=== PATIENT | male | born 1975 | race Caucasian/White ===

== ENCOUNTER 2017-07-15 17:14 | Emergency (ER) | payer OTHER ==
[~2017-07-15] VITALS: Ht 180.3 cm; Wt 74.7 kg
[2017-07-15 17:20] VITALS: TEMP 36.7; Ht 180.3 cm; Wt 74.7 kg
[2017-07-15] MEDS ORDERED: SODIUM CHLORIDE 0.9% 1000ML 1,000 ML IV STA (17:45)
[2017-07-15] MEDS ORDERED: MoRPHine SULFATE 10 MG/ML CARP/VIAL IV STA ×2 (17:45→19:25)
[2017-07-15] MEDS ORDERED: ONDANSETRON INJ 2 MG/ML 2 ML VIAL IV STA (17:45)
[2017-07-15] MEDS ORDERED: OPTIRAY 320 IV PRN (18:00)
[2017-07-15 18:02] LABS: BASO % 0.2 %; BASO ABS # 0.03 K/uL (0-0.2); COMPLETE YES; EOS % 2.3 %; HEMATOCRIT 45.2 % (42-52); IG% 0.3 %; LYMPH % 15.8 %; LYMPH ABS # 2.37 K/uL (1.2-3.4); MEAN CELL VOLUME 86.9 fL (80-100); MEAN CORPUSCULAR HEMOGLOBIN 32.1 pg (25-34); MEAN CORPUSCULAR HGB CONC 36.9 g/dl (32-36); MEAN PLATELET VOLUME 9.2 fL (7.4-10.4); MONO % 6.4 %; PLATELET COUNT 300 K/uL (130-400); WHITE BLOOD COUNT 15.04 K/uL (4.8-10.8)
[2017-07-15 18:05] LABS: URINE APPEARANCE CLEAR (CLEAR); URINE BILIRUBIN NEG (NEG); URINE COLOR DK YELLOW; URINE NITRITE NEG (NEG); URINE SPECIFIC GRAVITY 1.019 (1.000-1.030); UROBILINOGEN NEG (NEG)
[2017-07-15 18:07] LABS: MANUAL MICROSCOPIC REQUIRED? NO; REVIEW REQ? NO
[2017-07-15] MEDS ORDERED: IBUP-1050 PO (18:12)
[2017-07-15 18:26] LABS: ALT/SGPT 34 U/L (12-78); AST/SGOT 15 U/L (15-37); BLOOD UREA NITROGEN 10 mg/dl (7-18); BUN/CREATININE RATIO 10.7 (10-20); CALCIUM 9.1 mg/dl (8.5-10.1); CARBON DIOXIDE 28 mmol/L (21-32); CHLORIDE 105 mmol/L (98-107); CREATININE 0.94 mg/dl (0.60-1.40); GLUCOSE 90 mg/dl (70-99); POTASSIUM 3.7 mmol/L (3.5-5.1); SODIUM 139 mmol/L (136-145)
[2017-07-15 18:29] LABS: ALKALINE PHOSPHATASE 100 U/L (45-117)
--- NOTE | 2017-07-15 18:34 | DIAGNOSTIC IMAGING REPORT ---
ULTRASOUND OF THE APPENDIX CLINICAL HISTORY: Right lower quadrant abdominal pain. COMPARISON STUDY: No priors. FINDINGS: Real-time, grayscale, and color flow sonography of the right lower quadrant was performed to assess for acute appendicitis. The appendix was not discretely visualized. No inflammatory changes or free fluid are seen in the right lower quadrant. No lymphadenopathy was seen. IMPRESSION: Nonvisualization of the appendix. Note that this does not exclude acute appendicitis. Electronically signed by: Dakota Simons M.D. 07/15/2017 6:33 PM Dictated Date/Time: 07/15/2017 6:32 PM
--- NOTE | 2017-07-15 20:25 | DIAGNOSTIC IMAGING REPORT ---
CT OF THE ABDOMEN AND PELVIS WITH CONTRAST CLINICAL HISTORY: Right lower quadrant abdominal pain. COMPARISON STUDY: Abdominal ultrasound performed earlier today. TECHNIQUE: Following IV administration of 116 mL of Optiray-320, axial images of the abdomen and pelvis were obtained from the lung bases to the proximal femurs. Images were reviewed in the axial, sagittal, and coronal planes. IV contrast was administered without complication. A dose lowering technique was utilized adhering to the principles of ALARA. Oral contrast was administered. CT DOSE: 334.41 mGy.cm FINDINGS: The liver, spleen, adrenal glands, kidneys and pancreas are normal. There is no biliary or pancreatic ductal dilatation. The caliber and wall thickness of small and large bowel are normal. The appendix is normal. There is no free fluid. There is no lymphadenopathy or ascites. There is mild dextroscoliosis of the lumbar spine. There are no suspicious osseous lesions. IMPRESSION: No acute process within the abdomen or pelvis. Normal appendix. Electronically signed by: Demetrio Levi M.D. 07/15/2017 8:24 PM Dictated Date/Time: 07/15/2017 8:17 PM
[2017-07-15] MEDS ORDERED: HYDR-5688 PO (20:54)
[2017-07-15] MEDS ORDERED: NORCO 5/325MG HOME PACK PO ONE (21:00)
[2017-07-15 21:09] VITALS: BP 133/82; PULSE 61; O2SAT 98
--- NOTE | 2017-07-16 01:07 | EMERGENCY ROOM VISIT NOTE ---
ED Visit Note First contact with patient: 17:20 Chief Complaint: I'm having pain in my lower abdomen on the right. History of Present Illness: Mr. Jansen is a 41 year-old white male who ambulates into the ED accompanied by female friend complaining of right lower quadrant abdominal pain. Historically patient reports patient has had similar pain 3-4 times over the last year. He was seen at other hospitals for his symptoms and no cause was identified. He does report he has no significant gastrointestinal disorders and is never had any abdominal surgeries. Patient reports a gradual onset of right lower quadrant abdominal pain that started approximately 2 days ago. Since that time the pain has been constant and gradually increasing in intensity. The pain is currently described as sharp. He rates his discomfort 5/10. The pain is radiating into the proximal aspect of the anterior right thigh.. The pain worsens with palpation of his abdomen and extension of his hip. He has not identified any alleviating factors related to the pain. He reports he has been taken ibuprofen without relief of his discomfort. Associated with the pain there has been experiencing chills but no dianna fevers, he has been nauseated but has not vomited and has noted a decreased appetite.. Patient denies fevers, chills, sweats, skin eruptions, skin color changes, upper respiratory tract symptoms, shortness of breath, chest pain, nausea, vomiting, diarrhea, constipation, rectal bleeding, black/tarry stools, urinary symptoms, hematuria, vaginal bleeding, vaginal discharge, back/flank pain. Review of Systems: As noted above in history of present illness. All body systems were reviewed and found to be negative as noted above. Past Medical History: As noted above, hypertension, asthma and spina bifida. Current Medications: Lisinopril, Paxil. Allergies to Medications: Tramadol. Social History: Patient is currently employed; he feels safe in his home environment; he admits to tobacco use and denies alcohol use. Physical Examination: Vital Signs: Date Time Temp Pulse Resp B/P (MAP) Pulse Ox O2 Delivery O2 Flow Rate FiO2 07/15/17 21:09 61 18 133/82 98 07/15/17 19:06 61 18 133/82 98 Room Air 07/15/17 18:07 76 07/15/17 17:20 36.7 87 18 124/74 96 Room Air GENERAL: 41-year-old female in mild to moderate distress due to pain, nontoxic- appearing, afebrile and hemodynamically stable. NEUROLOGICAL: Awake, alert and oriented to person, place and time. Answering questions appropriately and following commands. Normal gait. Good hand eye coordination. SKIN: Warm, dry and pink. No soft tissue eruptions or trauma noted. HEENT: Atraumatic and normocephalic. PERRLA. Sclera white and conjunctiva pink. Oral cavity moist and pink. Pharynx is nonerythematous or edematous. Speech normal. No lymphadenopathy. Trachea midline. No jugular venous distention. BACK: No tenderness over the bony spine. No CVA tenderness. THORAX: Lungs sounds are clear to auscultation and equal bilaterally with symmetrical chest wall. No wheezing, rales or rhonchi. No crepitus, tenderness , subcutaneous air or deformities noted. HEART: Regular rate and rhythm. No gallops, rubs or murmurs are appreciated. ABDOMEN: Flat and soft with moderate tenderness just superior to McBurney's point with guarding. Negative psoas sign and heel tap test. Decreased bowel sounds in all quadrants. No guarding, rigidity or organomegaly. EXTREMITIES: Moves all extremities well on command and with purpose. All distal neurovascular statuses are intact and equal bilaterally. ED Course: Patient is assessed as noted above. Laboratory Testing: Test 07/15/17 17:47 Range/Units White Blood Count 15.04 4.8-10.8 K/uL Red Blood Count 5.20 4.7-6.1 M/uL Hemoglobin 16.7 14.0-18.0 g/dL Hematocrit 45.2 42-52 % Mean Corpuscular Volume 86.9 80-100 fL Mean Corpuscular Hemoglobin 32.1 25-34 pg Mean Corpuscular Hemoglobin Concent 36.9 32-36 g/dl Platelet Count 300 130-400 K/uL Mean Platelet Volume 9.2 7.4-10.4 fL Neutrophils (%) (Auto) 75.0 % Lymphocytes (%) (Auto) 15.8 % Monocytes (%) (Auto) 6.4 % Eosinophils (%) (Auto) 2.3 % Basophils (%) (Auto) 0.2 % Neutrophils # (Auto) 11.27 1.4-6.5 K/uL Lymphocytes # (Auto) 2.37 1.2-3.4 K/uL Monocytes # (Auto) 0.97 0.11-0.59 K/uL Eosinophils # (Auto) 0.35 0-0.5 K/uL Basophils # (Auto) 0.03 0-0.2 K/uL RDW Standard Deviation 40.3 36.4-46.3 fL RDW Coefficient of Variation 12.6 11.5-14.5 % Immature Granulocyte % (Auto) 0.3 % Immature Granulocyte # (Auto) 0.05 0.00-0.02 K/uL Urine Color DK YELLOW Urine Appearance CLEAR CLEAR Urine pH 6.0 4.5-7.5 Urine Specific [place] 1.019 1.000-1.030 Urine Protein NEG NEG Urine Glucose (UA) NEG NEG Urine Ketones TRACE NEG Urine Occult Blood NEG NEG Urine Nitrite NEG NEG Urine Bilirubin NEG NEG Urine Urobilinogen NEG NEG Urine Leukocyte Esterase NEG NEG Sodium Level 139 136-145 mmol/L Potassium Level 3.7 3.5-5.1 mmol/L Chloride Level 105 98-107 mmol/L Carbon Dioxide Level 28 21-32 mmol/L Anion Gap 6.0 3-11 mmol/L Blood Urea Nitrogen 10 7-18 mg/dl Creatinine 0.94 0.60-1.40 mg/dl Est Creatinine Clear Calc Drug Dose 109.3 ml/min Estimated GFR () 116.3 Estimated GFR (Non- 100.3 BUN/Creatinine Ratio 10.7 10-20 Random Glucose 90 70-99 mg/dl Calcium Level 9.1 8.5-10.1 mg/dl Total Bilirubin 0.5 0.2-1 mg/dl Direct Bilirubin < 0.1 0-0.2 mg/dl Aspartate Amino Transf (AST/SGOT) 15 15-37 U/L Alanine Aminotransferase (ALT/SGPT) 34 12-78 U/L Alkaline Phosphatase 100 45-117 U/L Total Protein 7.3 6.4-8.2 gm/dl Albumin 3.7 3.4-5.0 gm/dl Lipase 52 73-393 U/L Appendix Ultrasound: Was reviewed by myself and read by the radiologist and shows a nonvisualized appendix. Contrast Abdominal/Pelvic CT: Was reviewed by myself and read by the radiologist and shows a normal-appearing appendix and no acute process within the abdomen or pelvis. Patient was hydrated with normal saline and he received a total of 12 mg of morphine IV for pain, 4 mg of Zofran IV for nausea. Patient was reassessed multiple times during his stay in the emergency department. Patient's case was reviewed with Dr. Lyles; we agreed on diagnostic approach, treatment, disposition and plan. Patient was educated about today's findings and instructed on his treatment plan ; he verbalizes understanding and agreement with this plan. Clinical Impression: Right lower quadrant abdominal pain. Decision-Making: Initially my differential diagnosis I considered appendicitis, ureter calculus, constipation, bowel obstruction, colitis, and other causes. Disposition: Patient discharged home in stable condition accompanied by his ; prior to departure he was reassessed and subjectively reported he was feeling better and rated his discomfort 2/10. Plan: Patient was placed on a sliding pain medication scale including ibuprofen, acetaminophen and Snow; appropriate narcotic precautions were discussed with the patient and his name was checked in the state database and no red flags were noted. Patient was encouraged to follow-up with Dr. Tony, marking devices assembler, for specialty care and treatment. Patient was encouraged to stay well-hydrated. Patient was also encouraged to contact his PCP and provide information about this ED visit. Patient was encouraged return ED for worsening/uncontrolled pain, fevers, vomiting, bloody stools or any new/concerning symptoms.
== END 2017-07-15 21:24 | disposition home or self-care (01) ==
LOC: C.EDB 17:15 → C.EDC 21:24
DX: R10.31 Right lower quadrant pain (principal); I10 Essential (primary) hypertension; J45.909 Unspecified asthma, uncomplicated; Q05.7 Lumbar spina bifida without hydrocephalus; F17.200 Nicotine dependence, unspecified, uncomplicated; Z79.899 Other long term (current) drug therapy; Z88.8 Allergy status to other drugs, medicaments and biological substances

== ENCOUNTER 2017-07-30 15:40 | Emergency (ER) | payer OTHER ==
[~2017-07-30] VITALS: Ht 180.3 cm; Wt 71.8 kg
[~2017-07-30 15:40] MED LIST: HYDR-5688 PO; IBUP-1050 PO
[2017-07-30 15:42] VITALS: TEMP 37; Ht 180.3 cm; Wt 71.8 kg
[2017-07-30] MEDS ORDERED: ONDANSETRON INJ 2 MG/ML 2 ML VIAL IV PRN (17:15)
[2017-07-30] MEDS ORDERED: SODIUM CHLORIDE 0.9% 1000ML 1,000 ML IV ONE (17:15)
[2017-07-30] MEDS ORDERED: ADVIN25/60 INH (17:20)
--- NOTE | 2017-07-30 17:22 | EMERGENCY ROOM VISIT NOTE ---
History First contact with patient: 16:53 Chief Complaint: ABDOMINAL PAIN Stated Complaint: RT LOWER ABDOMINAL PAIN, MAY BE FROM CLIP Nursing Triage Summary: Pt had colonoscopy done thursday, pt states unable to eat x 2 days, states when can tolerate food it "feels like feces is connecting to the clip, but when I go I feel a little better." . Pt states pain in abdomen on palpation RUQ, RLQ, pt states normal bowel movements when eating. Nausea with no vomiting. History of Present Illness The patient is a 41 year old male who presents to the Emergency Room with complaints of right lower abdominal pain for the last week. The patient was seen in the emergency department for a similar pain approximately 2 weeks ago. He saw a GI doctor and had a colonoscopy 9 days ago. It was noted that he had multiple diverticula. A polyp was also removed and a clip was placed to prevent bleeding. The patient developed returning abdominal pain 3 days ago. He has not taken anything for the pain. He also says that he cannot eat due to nausea. There has been no vomiting. He has not had a bowel movement in the last 2 days. He does not remember seeing any blood in his stool. No fever or chills. Review of Systems 10 system review performed and negative unless noted in HPI or below Past Medical/Surgical History Hypertension Family History Coronary artery disease Social History Smoking Status: Current Every Day Smoker Alcohol Use: none Occupation Status: employed Current/Historical Medications Scheduled Acetaminophen (Tylenol), 1,000 MG PO UD Lisinopril (Zestril), 10 MG PO QAM Paroxetine (Paxil), 40 MG PO QAM Scheduled PRN Fluticasone Prop/Salmeterol (Advair Diskus 250/50 60 Dose), 1 PUFF INH BID PRN for SOB/Wheezing Oxycodone Ir (Roxicodone Ir), 1-2 TAB PO Q4H PRN for Pain Promethazine Hcl (Phenergan), 25 MG PO Q6H PRN for Nausea Allergies Coded Allergies: Tramadol (Verified Allergy, Unknown, ,, 07/15/17) interacts with paxil and doesn't make the paxil work for him Physical Exam Vital Signs Date Time Temp Pulse Resp B/P (MAP) Pulse Ox O2 Delivery O2 Flow Rate FiO2 07/30/17 21:02 66 16 141/88 97 07/30/17 20:15 59 20 127/90 98 Room Air 07/30/17 18:44 75 20 122/82 99 Room Air 07/30/17 16:54 73 16 135/87 98 Room Air 07/30/17 15:42 37.0 95 18 137/87 95 Room Air Physical Exam VITALS: Vitals are noted on the nurse's note and reviewed by myself. Vital signs stable. GENERAL: 41-year-old male, in no acute distress, nondiaphoretic, well-developed well-nourished. SKIN: The skin was without rashes, erythema, edema, or bruising. HEAD: Normocephalic atraumatic. MOUTH: Mucous membranes fairly dry NECK: Supple without nuchal rigidity. No JVD. HEART: Regular rate and rhythm without murmurs gallops or rubs. LUNGS: Clear to auscultation bilaterally without wheezes, rales or rhonchi. No accessory muscle use. ABDOMEN: Positive bowel sounds x 4.Soft, tenderness to palpation in the right lower quadrant, without organomegaly. No guarding or rebound tenderness. MUSCULOSKELETAL: No muscle atrophy, erythema, or edema noted. Strength 5/5 throughout. NEURO: Patient was alert and oriented to person place and time. Normal sensation to touch. No focal neurological deficits. Medical Decision & Procedures ER Provider Diagnostic Interpretation: Patient Name: SIDNEY SHAIKH Unit Number: [id number] Dictated: 07/30/171923 Transcribed: 07/30/171923 ARG Printed Date/Time: [~ rep prt dt]/[~ rep prt tm] [~ rep ct labl] - [~ rep ct ivnm] [facility] [place] [address] Dictated: 07/30/171923 Transcribed: 07/30/171923 ARG Printed Date/Time: [~ rep prt dt]/[~ rep prt tm] [~ rep ct labl] - [~ rep ct ivnm] CT ABD/PELVIS IV CONTRAST ONLY CLINICAL HISTORY: Right lower quadrant abdominal pain. Elevated white count. Recent colonoscopy. COMPARISON STUDY: 07/15/2017 TECHNIQUE: Following the IV administration of 118 mL of Optiray-320, CT scan of the abdomen and pelvis was performed from the lung bases to the proximal femurs. Images are reviewed in the axial, sagittal, and coronal planes. IV contrast was administered without complication. A dose lowering technique was utilized adhering to the principles of ALARA. CT DOSE: 308.75 mGy.cm FINDINGS: Lower chest: There are by basilar atelectatic changes present. Liver: The contrast-enhanced liver is normal in size, contour, and attenuation. There is no intrahepatic biliary ductal dilatation. The hepatic veins and portal veins are patent. Gallbladder: Unremarkable. Spleen: Normal in size and attenuation. Pancreas: Unremarkable. Adrenal glands: Unremarkable. Kidneys: There is symmetric renal cortical enhancement. The kidneys are normal in size without hydronephrosis. Bowel: There is no evidence of acute appendicitis. There is no evidence of acute diverticulitis. There are borderline dilated proximal jejunal loops, similar to the preceding study. Significant bowel obstruction is not however felt to be present. There are multiple scattered air-fluid levels. Peritoneum: There is no intraperitoneal free air or abdominal ascites. Vasculature: The abdominal aorta is normal in course and caliber. Adenopathy: None. Pelvic viscera: The bladder, and pelvic viscera are unremarkable. Skeletal structures: No destructive lesions are visualized. There is partial SI joint ankylosis. IMPRESSION: 1. Borderline dilated proximal jejunal loops without evidence of wall thickening. As the finding remains similar to the preceding study, and given the fact that contrast passed through this area on the prior study, this finding is unlikely represent a significant bowel obstruction 2. No evidence of free intraperitoneal air 3. No evidence of abscess 4. No evidence of acute appendicitis. No evidence of acute diverticulitis. Electronically signed by: Shawn Miller M.D. 07/30/2017 7:32 PM Dictated Date/Time: 07/30/2017 7:24 PM The status of this report is Signed. Draft = Not yet reviewed or approved by Radiologist. Signed = Reviewed and approved by Radiologist. <AttendingPhy></AttendingPhy> <FamilyPhy>Anabelle Masters PA-C</FamilyPhy> < PrimaryPhy>Anabelle Masters PA-C</PrimaryPhy> <UnitNumber>[id number]</UnitNumber > <VisitNumber>[id number]</VisitNumber> <PatientName>SIDNEY SHAIKH</ PatientName> <DateOfBirth>1975</DateOfBirth> <Location>[facility]</Location> < ServiceDate>07/30/17</ServiceDate> <MNE>ESINDI</MNE> <OrderingPhy>Ashley Jenkins PA-C</OrderingPhy> <OrderingPhyMNE>f rep ord dr hector</OrderingPhyMNE> < DictatingPhyMNE>f rep dict dr hector</DictatingPhyMNE> <CCListMNE>f rep ct mne</ CCListMNE> <AdmittingPhyMNE>f pt admit dr hector</AdmittingPhyMNE> <AttendingPhyMNE >f pt attend dr hector</AttendingPhyMNE> <ConsultingPhyMNE>f pt consult dr hector</ConsultingPhyMNE> <FamilyPhyMNE>f pt fam dr hector</FamilyPhyMNE> <OtherPhyMNE>f pt other dr hector</OtherPhyMNE> < PrimaryPhyMNE>f pt prim care dr hector</PrimaryPhyMNE> <ReferringPhyMNE>f pt referring dr hector</ReferringPhyMNE> Patient Name: SIDNEY SHAIKH Unit Number: [id number] Dictated: 07/30/171742 Transcribed: 07/30/171742 ARG Printed Date/Time: [~ rep prt dt]/[~ rep prt tm] [~ rep ct labl] - [~ rep ct ivnm] [facility] [place] [place] [address] Dictated: 07/30/171742 Transcribed: 07/30/171742 ARG Printed Date/Time: [~ rep prt dt]/[~ rep prt tm] [~ rep ct labl] - [~ rep ct ivnm] ABDOMEN 2VIEW W/PA CHEST RTN CLINICAL HISTORY: Right lower quadrant abdominal pain. History of colonoscopy last week. COMPARISON STUDY: No previous studies for comparison. FINDINGS: The erect chest reveals no free air. There is no focal pulmonary consolidation. Erect and supine views the abdomen reveal a few scattered air-fluid levels.. There are no transition zones indicate bowel obstruction. There is gas present within nondilated colon and small bowel. There is a lumbar dextroscoliosis. IMPRESSION: No evidence of bowel obstruction. No evidence of free air. Electronically signed by: Shawn Miller M.D. 07/30/2017 5:44 PM Dictated Date/Time: 07/30/2017 5:43 PM The status of this report is Signed. Draft = Not yet reviewed or approved by Radiologist. Signed = Reviewed and approved by Radiologist. <AttendingPhy></AttendingPhy> <FamilyPhy>Anabelle Masters PA-C</FamilyPhy> < PrimaryPhy>Anabelle Masters PA-C</PrimaryPhy> <UnitNumber>[id number]</UnitNumber > <VisitNumber>[id number]</VisitNumber> <PatientName>SIDNEY SHAIKH</ PatientName> <DateOfBirth>1975</DateOfBirth> <Location>[facility]</Location> < ServiceDate>07/30/17</ServiceDate> <MNE>ESINDI</MNE> <OrderingPhy>Ashley Jenkins PA-C</OrderingPhy> <OrderingPhyMNE>f rep ord dr hector</OrderingPhyMNE> < DictatingPhyMNE>f rep dict dr hector</DictatingPhyMNE> <CCListMNE>f rep ct krunal</ CCListMNE> <AdmittingPhyMNE>f pt admit dr hector</AdmittingPhyMNE> <AttendingPhyMNE >f pt attend dr hector</AttendingPhyMNE> <ConsultingPhyMNE>f pt consult dr hector</ConsultingPhyMNE> <FamilyPhyMNE>f pt fam dr hector</FamilyPhyMNE> <OtherPhyMNE>f pt other dr hector</OtherPhyMNE> < PrimaryPhyMNE>f pt prim care dr hector</PrimaryPhyMNE> <ReferringPhyMNE>f pt referring dr hector</ReferringPhyMNE> Laboratory Results 07/30/17 17:00 Red Blood Count 5.72, Mean Corpuscular Volume 88.6, Mean Corpuscular Hemoglobin 30.8, Mean Corpuscular Hemoglobin Concent 34.7, Mean Platelet Volume 9.3, Neutrophils (%) (Auto) 66.1, Lymphocytes (%) (Auto) 24.0, Monocytes (%) (Auto) 7.6, Eosinophils (%) (Auto) 1.8, Basophils (%) (Auto) 0.2, Neutrophils # (Auto) 7.32, Lymphocytes # (Auto) 2.66, Monocytes # (Auto) 0.84, Eosinophils # (Auto) 0.20, Basophils # (Auto) 0.02 07/30/17 17:00 Test 07/30/17 16:52 07/30/17 17:00 Urine Color DK YELLOW Urine Appearance CLEAR (CLEAR) Urine pH 6.0 (4.5-7.5) Urine Specific [place] 1.025 (1.000-1.030) Urine Protein NEG (NEG) Urine Glucose (UA) NEG (NEG) Urine Ketones TRACE (NEG) Urine Occult Blood NEG (NEG) Urine Nitrite NEG (NEG) Urine Bilirubin NEG (NEG) Urine Urobilinogen NEG (NEG) Urine Leukocyte Esterase NEG (NEG) White Blood Count 11.07 K/uL (4.8-10.8) Red Blood Count 5.72 M/uL (4.7-6.1) Hemoglobin 17.6 g/dL (14.0-18.0) Hematocrit 50.7 % (42-52) Mean Corpuscular Volume 88.6 fL (80-100) Mean Corpuscular Hemoglobin 30.8 pg (25-34) Mean Corpuscular Hemoglobin Concent 34.7 g/dl (32-36) Platelet Count 398 K/uL (130-400) Mean Platelet Volume 9.3 fL (7.4-10.4) Neutrophils (%) (Auto) 66.1 % Lymphocytes (%) (Auto) 24.0 % Monocytes (%) (Auto) 7.6 % Eosinophils (%) (Auto) 1.8 % Basophils (%) (Auto) 0.2 % Neutrophils # (Auto) 7.32 K/uL (1.4-6.5) Lymphocytes # (Auto) 2.66 K/uL (1.2-3.4) Monocytes # (Auto) 0.84 K/uL (0.11-0.59) Eosinophils # (Auto) 0.20 K/uL (0-0.5) Basophils # (Auto) 0.02 K/uL (0-0.2) RDW Standard Deviation 42.2 fL (36.4-46.3) RDW Coefficient of Variation 13.0 % (11.5-14.5) Immature Granulocyte % (Auto) 0.3 % Immature Granulocyte # (Auto) 0.03 K/uL (0.00-0.02) Anion Gap 7.0 mmol/L (3-11) Est Creatinine Clear Calc Drug Dose 99.7 ml/min Estimated GFR () 109.2 Estimated GFR (Non- 94.2 BUN/Creatinine Ratio 9.4 (10-20) Calcium Level 9.4 mg/dl (8.5-10.1) Total Bilirubin 0.5 mg/dl (0.2-1) Aspartate Amino Transf (AST/SGOT) 9 U/L (15-37) Alanine Aminotransferase (ALT/SGPT) 20 U/L (12-78) Alkaline Phosphatase 115 U/L (45-117) Total Protein 7.8 gm/dl (6.4-8.2) Albumin 4.2 gm/dl (3.4-5.0) Globulin 3.6 gm/dl (2.5-4.0) Albumin/Globulin Ratio 1.2 (0.9-2) Lipase 72 U/L (73-393) Medications Administered Medications (Trade) Dose Ordered Sig/Dg Route Start Time Stop Time Status Last Admin Dose Admin Sodium Chloride 1,000 ml @ 999 mls/hr Q1H1M ONCE IV 07/30/17 17:15 07/30/17 18:15 DC 07/30/17 17:43 999 MLS/HR Ondansetron HCl (Zofran Inj) 4 mg Q2H PRN IV 07/30/17 17:15 07/30/17 21:28 DC 07/30/17 17:42 4 MG Morphine Sulfate (MoRPHine SULFATE INJ) 4 mg Q1H PRN IV 07/30/17 17:15 07/30/17 21:28 DC 07/30/17 18:44 4 MG Oxycodone HCl (Roxicodone Immediate Rel 5MG Home Pack) 1 homepack UD ONCE PO 07/30/17 20:45 07/30/17 20:46 DC 07/30/17 21:00 1 HOMEPACK Promethazine HCl (Phenergan 25MG Home Pack) 1 homepack UD ONCE PO 07/30/17 20:45 07/30/17 20:46 DC 07/30/17 21:00 [facility] Patient was seen and examined Vital signs including blood pressure were reviewed medications list was verified with patient Labs were obtained, and a saline lock was established The patient was given morphine 4 mg IV and Zofran 4 mg IV for his symptoms. He was hydrated with 1 L of normal saline. Imaging was performed and reviewed The patient was reevaluated and still complaining of pain and nausea. He was given an additional dose of morphine and Zofran. The case was discussed with my supervising physician. I then contacted the on- call physician for GI, Dr. Holliday. We discussed the case. The patient was again reevaluated. He did not want to be in the hospital overnight. We discussed disposition options. He was comfortable being discharged home on clear liquids. The patient was given a home pack of Phenergan I reviewed discharge instructions the patient. They voiced understanding and had no further questions. Medical Decision DIFFERENTIAL DIAGNOSIS: Bowel perforation, Gastroenteritis, Hepatitis, cholecystitis, cholangitis, biliary colic, pancreatitis, appendicitis, inguinal hernia, nephrolithiasis, inflammatory bowel disease, mesenteric adenitis, peptic ulcer disease, GERD, gastritis, pancreatitis,, bowel obstruction, splenic infarct, diverticulitis, mesenteric ischemia, metabolic, peritonitis, among others. This patient is a 41-year-old male that presented to the emergency department with complaints of right lower quadrant abdominal pain that has been ongoing intermittently over the last several weeks. He had a colonoscopy 9 days ago and a polyp removed. I initially ordered blood work and x-rays to evaluate the patient for possible ileus, bowel obstruction or perforation. No findings were noted on the x-rays. He did have mild leukocytosis. This prompted me to do further imaging with a CT of the abdomen and pelvis. There is questionable thickening of the jejunum. No SBO was noted. The patient was tolerating clear liquids. He had good pain control in the emergency department. The case was discussed with GI. They recommended discharge home with close follow-up. The patient is in agreement with this plan. He agrees to return to the emergency department with any worsening symptoms or medical concerns. This chart was completed in part utilizing [employer] Voice Recognition software. Attempts were made to minimize the grammatical errors, random word insertions, pronoun errors and incomplete sentences. Any formal questions or concerns about the content, text or information contained within the body of this dictation should be directly addressed to the provider for clarification. Consults Consulting Physician: Dr. Holliday Impression Primary Impression: Abdominal pain Additional Impression: Nausea Departure Information Dispostion Home / Self-Care Condition FAIR Prescriptions Oxycodone Ir (Roxicodone Ir) 5 Mg Tab 1-2 TAB PO Q4H Y for Pain, #15 TAB For Initial Treatment Prov: Ashley Jenkins PA-C 07/30/17 Promethazine Hcl (Phenergan) 25 Mg Tab 25 MG PO Q6H Y for Nausea, #15 TAB Prov: Ashley Jenkins PA-C 07/30/17 Referrals Anabelle Masters PA-C (PCP) Fabi Shine M.D. Patient Instructions [facility] Additional Instructions Please follow a clear liquid diet for the next 24 hours. This includes things like soda, Gatorade, broth and sherbet Please take Phenergan 1 pill every 6 hours as needed for nausea Continue Tylenol and ibuprofen for pain Ibuprofen 800 mg and/or Tylenol 1000 mg every 8 hours. You may also alternate these medications for more effective pain relief: Ibuprofen --4 HRS--> Tylenol --4 HRS--> ibuprofen --4 HRS--> Tylenol .... Please reserve oxycodone for very severe pain Oxycodone Immediate Release (OxyIR) 5mg: Take 1-2 pills every four hours for pain. Avoid alcohol, operating machinery or dangerous equipment, working on ladders or roofs, DRIVING, or situations where being under the influence may be dangerous. It is recommended to use an [id number] stool softener such as Colace, 100mg twice daily while taking this medication to avoid constipation. Please call Dr. Shine in the morning for a follow-up appointment Return to the emergency department if you have any of the following symptoms: -Fever of 103F or greater -Persistent vomiting - Persistent diarrhea -Lethargy -Chest pain -Shortness of breath -Worsening pain Problem Qualifiers
[2017-07-30 17:23] LABS: URINE APPEARANCE CLEAR (CLEAR); URINE COLOR DK YELLOW; URINE NITRITE NEG (NEG); URINE SPECIFIC GRAVITY 1.025 (1.000-1.030); UROBILINOGEN NEG (NEG)
[2017-07-30 17:23] LABS: BASO % 0.2 %; BASO ABS # 0.02 K/uL (0-0.2); COMPLETE YES; EOS % 1.8 %; HEMATOCRIT 50.7 % (42-52); IG% 0.3 %; LYMPH ABS # 2.66 K/uL (1.2-3.4); MEAN CELL VOLUME 88.6 fL (80-100); MEAN CORPUSCULAR HEMOGLOBIN 30.8 pg (25-34); MEAN CORPUSCULAR HGB CONC 34.7 g/dl (32-36); MEAN PLATELET VOLUME 9.3 fL (7.4-10.4); MONO % 7.6 %; NEUT % 66.1 %; PLATELET COUNT 398 K/uL (130-400); RED BLOOD COUNT 5.72 M/uL (4.7-6.1); WHITE BLOOD COUNT 11.07 K/uL (4.8-10.8)
[2017-07-30 17:28] LABS: MANUAL MICROSCOPIC REQUIRED? NO; REVIEW REQ? NO; URINE BILIRUBIN NEG (NEG)
[2017-07-30] MEDS: MoRPHine SULFATE 4 MG/ML 1 ML CARP\\VIAL IV PRN ×2 (17:42→18:44)
[2017-07-30 17:44] LABS: BUN/CREATININE RATIO 9.4 (10-20); CALCIUM 9.4 mg/dl (8.5-10.1); CREATININE 0.99 mg/dl (0.60-1.40); POTASSIUM 3.9 mmol/L (3.5-5.1)
--- NOTE | 2017-07-30 17:45 | DIAGNOSTIC IMAGING REPORT ---
ABDOMEN 2VIEW W/PA CHEST RTN CLINICAL HISTORY: Right lower quadrant abdominal pain. History of colonoscopy last week. COMPARISON STUDY: No previous studies for comparison. FINDINGS: The erect chest reveals no free air. There is no focal pulmonary consolidation. Erect and supine views the abdomen reveal a few scattered air-fluid levels.. There are no transition zones indicate bowel obstruction. There is gas present within nondilated colon and small bowel. There is a lumbar dextroscoliosis. IMPRESSION: No evidence of bowel obstruction. No evidence of free air. Electronically signed by: Shawn Miller M.D. 07/30/2017 5:44 PM Dictated Date/Time: 07/30/2017 5:43 PM
[2017-07-30 17:46] LABS: ALB/GLOB RATIO 1.2 (0.9-2)
[2017-07-30] MEDS ORDERED: PARO1TAB29 PO (18:12)
[2017-07-30] MEDS ORDERED: LISI-461 PO (18:12)
[2017-07-30] MEDS ORDERED: ACET-1256 PO (18:13)
[2017-07-30] MEDS ORDERED: OPTIRAY 320 IV PRN (18:45)
--- NOTE | 2017-07-30 19:33 | DIAGNOSTIC IMAGING REPORT ---
CT ABD/PELVIS IV CONTRAST ONLY CLINICAL HISTORY: Right lower quadrant abdominal pain. Elevated white count. Recent colonoscopy. COMPARISON STUDY: 07/15/2017 TECHNIQUE: Following the IV administration of 118 mL of Optiray-320, CT scan of the abdomen and pelvis was performed from the lung bases to the proximal femurs. Images are reviewed in the axial, sagittal, and coronal planes. IV contrast was administered without complication. A dose lowering technique was utilized adhering to the principles of ALARA. CT DOSE: 308.75 mGy.cm FINDINGS: Lower chest: There are by basilar atelectatic changes present. Liver: The contrast-enhanced liver is normal in size, contour, and attenuation. There is no intrahepatic biliary ductal dilatation. The hepatic veins and portal veins are patent. Gallbladder: Unremarkable. Spleen: Normal in size and attenuation. Pancreas: Unremarkable. Adrenal glands: Unremarkable. Kidneys: There is symmetric renal cortical enhancement. The kidneys are normal in size without hydronephrosis. Bowel: There is no evidence of acute appendicitis. There is no evidence of acute diverticulitis. There are borderline dilated proximal jejunal loops, similar to the preceding study. Significant bowel obstruction is not however felt to be present. There are multiple scattered air-fluid levels. Peritoneum: There is no intraperitoneal free air or abdominal ascites. Vasculature: The abdominal aorta is normal in course and caliber. Adenopathy: None. Pelvic viscera: The bladder, and pelvic viscera are unremarkable. Skeletal structures: No destructive lesions are visualized. There is partial SI joint ankylosis. IMPRESSION: 1. Borderline dilated proximal jejunal loops without evidence of wall thickening. As the finding remains similar to the preceding study, and given the fact that contrast passed through this area on the prior study, this finding is unlikely represent a significant bowel obstruction 2. No evidence of free intraperitoneal air 3. No evidence of abscess 4. No evidence of acute appendicitis. No evidence of acute diverticulitis. Electronically signed by: Shawn Miller M.D. 07/30/2017 7:32 PM Dictated Date/Time: 07/30/2017 7:24 PM
[2017-07-30] MEDS ORDERED: OXYCODONE IR HOME PACK PO ONE (20:45)
[2017-07-30] MEDS ORDERED: PHENERGAN 25MG HOMEPACK PO ONE (20:45)
[2017-07-30] MEDS ORDERED: OXYC1TAB3 PO (20:46)
[2017-07-30] MEDS ORDERED: PROM25TA9 PO (20:46)
[2017-07-30 21:02] VITALS: BP 141/88; PULSE 66; O2SAT 97
--- NOTE | 2017-07-31 10:44 | EMERGENCY ROOM VISIT NOTE ---
ED Visit Note First contact with patient: 16:53 Patient was seen by our PA/SOLVENT RECOVERER. I was involved in the patient's care and did evaluate the patient myself. I was involved in the care throughout the ER stay. The patient presents with right-sided abdominal pain. He has a mild leukocytosis but his laboratory testing is otherwise unrevealing. Abdominal and pelvis CT does not show any acute infectious process. Some jejunal dilatation was seen but no true evidence for bowel obstruction. GI was consulted and the case was reviewed with them. Patient was medicated and feeling better. Outpatient follow-up and return to this ER for worsening symptoms was suggested. The patient was happy with this plan and care. The cause for his symptoms at this point is not clear.
== END 2017-07-30 21:03 | disposition home or self-care (01) ==
LOC: C.EDB 15:40 → C.EDC 21:03
DX: R10.31 Right lower quadrant pain (principal); R11.0 Nausea; Z98.890 Other specified postprocedural states; I10 Essential (primary) hypertension; Z82.49 Family history of ischemic heart disease and other diseases of the circulatory system; F17.210 Nicotine dependence, cigarettes, uncomplicated; Z79.899 Other long term (current) drug therapy

== ENCOUNTER 2017-08-22 13:02 | Emergency (ER) | payer OTHER ==
[~2017-08-22] VITALS: Ht 180.3 cm; Wt 75.1 kg
[~2017-08-22 13:02] MED LIST changes: +ACET-1256 PO; +ADVIN25/60 INH; -HYDR-5688 PO; -IBUP-1050 PO; +LISI-461 PO; +OXYC1TAB3 PO; +PARO1TAB29 PO; +PROM25TA9 PO
[2017-08-22 13:05] VITALS: TEMP 37; Ht 180.3 cm; Wt 75.1 kg
[2017-08-22] MEDS ORDERED: ONDANSETRON INJ 2 MG/ML 2 ML VIAL IV STA (13:29)
[2017-08-22 13:41] LABS: URINE APPEARANCE CLEAR (CLEAR); URINE BILIRUBIN NEG (NEG); URINE COLOR YELLOW; URINE NITRITE NEG (NEG); URINE PH 7.5 (4.5-7.5); UROBILINOGEN NEG (NEG)
[2017-08-22 13:44] LABS: MANUAL MICROSCOPIC REQUIRED? NO; REVIEW REQ? NO
[2017-08-22 13:48] LABS: BASO % 0.3 %; BASO ABS # 0.04 K/uL (0-0.2); COMPLETE YES; EOS % 1.5 %; HEMATOCRIT 45.4 % (42-52); IG% 0.2 %; LYMPH % 17.9 %; LYMPH ABS # 2.31 K/uL (1.2-3.4); MEAN CORPUSCULAR HEMOGLOBIN 30.3 pg (25-34); MEAN CORPUSCULAR HGB CONC 35.2 g/dl (32-36); MONO % 6.9 %; NEUT % 73.2 %; PLATELET COUNT 348 K/uL (130-400); RED BLOOD COUNT 5.28 M/uL (4.7-6.1); WHITE BLOOD COUNT 12.87 K/uL (4.8-10.8)
[2017-08-22] MEDS ORDERED: ATOR-54 PO (13:55)
[2017-08-22 13:56] LABS: BUN/CREATININE RATIO 12.6 (10-20); CREATININE 0.84 mg/dl (0.60-1.40); POTASSIUM 3.7 mmol/L (3.5-5.1)
--- NOTE | 2017-08-22 14:14 | DIAGNOSTIC IMAGING REPORT ---
PA CHEST WITH ABDOMINAL SERIES CLINICAL HISTORY: Right lower quadrant abdominal pain. FINDINGS: A PA chest radiograph is compared to study dated 07/30/2017. The cardiomediastinal silhouette is unremarkable. The lungs and pleural spaces are clear. No pneumothorax is seen. The bony thorax is grossly intact. Supine and erect abdominal radiographs are compared to radiographs and abdominal CT dated 07/30/2017. There is a nonobstructed abdominal bowel gas pattern. Moderate colonic fecal retention is observed. No evidence of intraperitoneal free air is seen. There are no abnormal abdominal calcifications. There is mild lumbar scoliosis. The lumbosacral spine and bony pelvis appear intact. IMPRESSION: 1. No active disease in the chest. 2. Nonobstructed abdominal bowel gas pattern noting moderate colonic fecal retention. Electronically signed by: Dakota Simons M.D. 08/22/2017 2:13 PM Dictated Date/Time: 08/22/2017 2:12 PM
[2017-08-22 14:33] VITALS: BP 114/81; PULSE 73; O2SAT 98
[2017-08-22] MEDS ORDERED: PROM25TA9 PO (14:40)
[2017-08-22] MEDS ORDERED: DICY10CA55 PO (14:40)
--- NOTE | 2017-08-22 17:32 | EMERGENCY ROOM VISIT NOTE ---
History First contact with patient: 13:09 Chief Complaint: ABDOMINAL PAIN Stated Complaint: LWR RT ABD. PAIN/SWELLING W/NAUSEA, CONSTIPATION History of Present Illness The patient is a 41 year old white male who presents to the Emergency Room with complaints of right lower quadrant abdominal pain that started earlier today. He has had recurrent episodes of this over the last 2 months. He was seen here twice before for the same complaint. He had CT scan imaging of the abdomen and pelvis with those visits, and no acute abnormality was noted. Patient states he feels constipated. He did move his bowels this morning. He is nauseated. He also complains of pain. No trauma to the abdomen. Appetite is decreased. He denies any fevers or chills. No sweats. No chest pain or shortness of breath. He denies any urinary difficulty. No back pain. No other treatment. He states he still has his appendix and gallbladder. No previous abdominal surgery. Review of Systems REVIEW OF SYSTEM: HEENT: No dizziness, visual problems, hearing loss, or tinnitus. There is no difficulty swallowing and no oral lesions are present. LYMPH: No adenopathy. PULMONARY: No cough, shortness of breath, sputum production or hemoptysis. CARDIOVASCULAR: No chest pain, palpitations, shortness of breath or peripheral edema. GASTROINTESTINAL: No diarrhea, vomiting. Positive constipation, nausea, and abdominal pain. GENITOURINARY: No dysuria, frequency, urgency or nocturia. NEUROLOGIC: No weakness, muscle tenderness, epilepsy or history of neurological problems. MUSCULOSKELETAL: No history of joint tenderness/swelling. No history of arthritis or arthralgias. SKIN: No rashes or lesions. PSYCHIATRIC: No history of depression or mental illness. ENDOCRINE: No history of diabetes, thyroid disorders, or abnormal hair growth. Past Medical/Surgical History Medical history: Significant for chronic abdominal pain Previous surgeries: Colonoscopy Family History Noncontributory. Social History Smoking Status: Current Every Day Smoker Smokeless Tobacco Use: No Alcohol Use: none Drug Use: none Marital Status: Housing Status: lives with family Occupation Status: employed Current/Historical Medications Scheduled Acetaminophen (Tylenol), 1,000 MG PO UD Atorvastatin (Lipitor), Unknown Dose PO DAILY Dicyclomine Hcl (Bentyl), 1 CAP PO TID Lisinopril (Zestril), 10 MG PO QAM Paroxetine (Paxil), 40 MG PO QAM Scheduled PRN Fluticasone Prop/Salmeterol (Advair Diskus 250/50 60 Dose), 1 PUFF INH BID PRN for SOB/Wheezing Promethazine Hcl (Phenergan), 25 MG PO Q6H PRN for Nausea Allergies Coded Allergies: Tramadol (Verified Allergy, Unknown, ,, 08/22/17) interacts with paxil and doesn't make the paxil work for him Physical Exam Vital Signs Date Time Temp Pulse Resp B/P (MAP) Pulse Ox O2 Delivery O2 Flow Rate FiO2 08/22/17 14:33 73 18 114/81 98 Room Air 08/22/17 13:05 37.0 103 17 138/90 97 Room Air Physical Exam Gen.: Well-developed, well-nourished, middle-aged white male, in no acute distress. Laying on a bed. Alert and oriented. Skin:Warm and dry with good turgor. No rashes or lesions. No ecchymosis or erythema. The patient is not diaphoretic. No abrasions. Heart: Heart RRR. No MGR. Peripheral pulses are 2+. Lungs: Lungs are clear to auscultation. No crackles rhonchi or wheezing. Good air movement. The patient is able to take a deep breath. Abdomen: Abdomen was inspected, auscultated, and palpated. Bowel sounds present x 4. Soft, right lower quadrant discomfort to palpation. Air is also epigastric discomfort with palpation. No hepato-splenomegaly. No masses noted. No rebound. Positive pain over McBurney's point. No CVA tenderness. Rectal: Rectal exam today shows no external hemorrhoids. Normal sphincter tone. No significant stool in the rectal vault. Palpable internal hemorrhoids. Musculoskeletal: Gross motor function of the lower extremities is intact and unremarkable. No increase in pain with straight leg raise. Neurologic: Gross sensation is intact across the abdomen and lower extremities by soft touch. Medical Decision & Procedures ER Provider Diagnostic Interpretation: Acute abdominal x-ray series obtained today was read by radiology as negative for obstruction. Nonobstructive bowel gas pattern is present. Some fecal retention is noted. Laboratory Results 08/22/17 13:23 Red Blood Count 5.28, Mean Corpuscular Volume 86.0, Mean Corpuscular Hemoglobin 30.3, Mean Corpuscular Hemoglobin Concent 35.2, Mean Platelet Volume 9.0, Neutrophils (%) (Auto) 73.2, Lymphocytes (%) (Auto) 17.9, Monocytes (%) (Auto) 6.9, Eosinophils (%) (Auto) 1.5, Basophils (%) (Auto) 0.3, Neutrophils # (Auto) 9.41, Lymphocytes # (Auto) 2.31, Monocytes # (Auto) 0.89, Eosinophils # (Auto) 0.19, Basophils # (Auto) 0.04 08/22/17 13:23 Test 08/22/17 13:23 08/22/17 13:30 White Blood Count 12.87 K/uL (4.8-10.8) Red Blood Count 5.28 M/uL (4.7-6.1) Hemoglobin 16.0 g/dL (14.0-18.0) Hematocrit 45.4 % (42-52) Mean Corpuscular Volume 86.0 fL (80-100) Mean Corpuscular Hemoglobin 30.3 pg (25-34) Mean Corpuscular Hemoglobin Concent 35.2 g/dl (32-36) Platelet Count 348 K/uL (130-400) Mean Platelet Volume 9.0 fL (7.4-10.4) Neutrophils (%) (Auto) 73.2 % Lymphocytes (%) (Auto) 17.9 % Monocytes (%) (Auto) 6.9 % Eosinophils (%) (Auto) 1.5 % Basophils (%) (Auto) 0.3 % Neutrophils # (Auto) 9.41 K/uL (1.4-6.5) Lymphocytes # (Auto) 2.31 K/uL (1.2-3.4) Monocytes # (Auto) 0.89 K/uL (0.11-0.59) Eosinophils # (Auto) 0.19 K/uL (0-0.5) Basophils # (Auto) 0.04 K/uL (0-0.2) RDW Standard Deviation 39.7 fL (36.4-46.3) RDW Coefficient of Variation 12.6 % (11.5-14.5) Immature Granulocyte % (Auto) 0.2 % Immature Granulocyte # (Auto) 0.03 K/uL (0.00-0.02) Anion Gap 4.0 mmol/L (3-11) Est Creatinine Clear Calc Drug Dose 122.9 ml/min Estimated GFR () 126.0 Estimated GFR (Non- 108.8 BUN/Creatinine Ratio 12.6 (10-20) Calcium Level 9.0 mg/dl (8.5-10.1) Total Bilirubin 0.3 mg/dl (0.2-1) Aspartate Amino Transf (AST/SGOT) 10 U/L (15-37) Alanine Aminotransferase (ALT/SGPT) 26 U/L (12-78) Alkaline Phosphatase 90 U/L (45-117) Total Protein 7.4 gm/dl (6.4-8.2) Albumin 3.7 gm/dl (3.4-5.0) Globulin 3.7 gm/dl (2.5-4.0) Albumin/Globulin Ratio 1.0 (0.9-2) Amylase Level 33 U/L (25-115) Lipase 69 U/L (73-393) Urine Color YELLOW Urine Appearance CLEAR (CLEAR) Urine pH 7.5 (4.5-7.5) Urine Specific [place] 1.020 (1.000-1.030) Urine Protein NEG (NEG) Urine Glucose (UA) NEG (NEG) Urine Ketones NEG (NEG) Urine Occult Blood NEG (NEG) Urine Nitrite NEG (NEG) Urine Bilirubin NEG (NEG) Urine Urobilinogen NEG (NEG) Urine Leukocyte Esterase NEG (NEG) CBC, chem panel, amylase, lipase, and UA were obtained. Mild elevation in WBCs at 12.8. This is consistent with his previous visits. Labs are otherwise unremarkable. Medications Administered Medications (Trade) Dose Ordered Sig/Dg Route Start Time Stop Time Status Last Admin Dose Admin Ondansetron HCl (Zofran Inj) 4 mg NOW STAT IV 08/22/17 13:29 08/22/17 13:30 DC 08/22/17 13:49 4 MG Zofran 4 mg IV ED Course Patient was educated regarding today's findings. Conservative care measures were discussed. IV was established. Labs were obtained. He was given Zofran 4 mg IV for nausea. Acute abdominal x-ray series was obtained. He has no fever. There is a mild elevation in white count that is consistent with his previous visits. Abdominal exam is also consistent with his previous visits. Radiographic imaging obtained today shows no evidence for obstruction. He does have some fecal retention. Rectal exam is benign. I do not think additional CT scan imaging of his abdomen and pelvis is warranted, as he has had 2 normal studies recently. He also had a recent colonoscopy on July 21 that showed diverticulosis without diverticulitis, and 1 polyp that was removed. Large hemorrhoids were noted at that time. Patient should follow-up with his GI doctor. Prescription was provided for Phenergan 25 mg to be used every 6 hours as needed for nausea. He was also prescribed Bentyl to be used 3 times a day for abdominal pain and spasm. Add MiraLAX daily for bowel regularity. Return to the ED for any acute changes or other concerns. Medical Decision Possibility of appendicitis, bowel obstruction, gastritis, diverticulitis, kidney stone, constipation, muscle strain, and pancreatitis were considered among others. [place] Drug Monitoring Program Search Results: patient reviewed within database Impression Primary Impression: Constipation Additional Impression: Abdominal pain Departure Information Dispostion Home / Self-Care Condition GOOD Prescriptions Dicyclomine Hcl (BENTYL) 10 Mg Cap 1 CAP PO TID for 6 Days, #18 CAP Prov: Greg Durham,P.A. 08/22/17 Promethazine Hcl (Phenergan) 25 Mg Tab 25 MG PO Q6H Y for Nausea, #12 TAB Prov: Greg Durham,P.A. 08/22/17 Referrals Fabi Shine M.D. Forms Call Back Authorization, DIET INSTRUCTION CL LIQUIDS, HOME CARE DOCUMENTATION FORM, IMPORTANT VISIT INFORMATION Patient Instructions Constipation, My [facility] Leroy skyrockit Additional Instructions Start MiraLAX daily to assist motility Start Bentyl daily for spasm/pain Phenergan 1 tablet every 6 hours as needed for nausea Maintain hydration Advance diet as tolerated Call Dr. enlson on Thursday for follow-up this week Problem Qualifiers Primary Impression: Constipation Constipation type: unspecified constipation type Qualified Codes: K59.00 - Constipation, unspecified Additional Impression: Abdominal pain Abdominal location: right lower quadrant Qualified Codes: R10.31 - Right lower quadrant pain
== END 2017-08-22 14:58 | disposition home or self-care (01) ==
LOC: C.EDB 13:04 → C.EDA 14:58
DX: K59.00 Constipation, unspecified (principal); R10.31 Right lower quadrant pain; G89.29 Other chronic pain; F17.200 Nicotine dependence, unspecified, uncomplicated; K64.8 Other hemorrhoids; K57.90 Diverticulosis of intestine, part unspecified, without perforation or abscess without bleeding

== ENCOUNTER 2017-11-21 20:01 | Observation (INO) | payer OTHER ==
[~2017-11-21] VITALS: Ht 180.3 cm; Wt 75.9 kg
[~2017-11-21 20:01] MED LIST changes: +ATOR-54 PO; +DICY10CA55 PO; -OXYC1TAB3 PO
[2017-11-21] MEDS ORDERED: ONDANSETRON INJ 2 MG/ML 2 ML VIAL IV STA (20:18)
[2017-11-21] MEDS ORDERED: SODIUM CHLORIDE 0.9% 1000ML 1,000 ML IV STA (20:18)
--- NOTE | 2017-11-21 20:24 | EMERGENCY ROOM VISIT NOTE ---
History Report prepared by Swapnilibe: Ning Sprague Under the Supervision of: Dr. Gurjit Lyles D.O. First contact with patient: 20:10 Chief Complaint: ABDOMINAL PAIN Stated Complaint: LOWER R ABDOMEN PAIN INTO BLADDER History of Present Illness The patient is a 41 year old male who presents to the Emergency Room with complaints of persistent lower abdominal pain since yesterday. He rates his pain as a 6/10 in severity. He has been nauseous but has not vomited. He also complains of pain in his bladder for the past few weeks. He denies any fevers, chills or back pain. He reports he last had a CT scan of his abdomen approximately 1 month ago. He states his most recent colonoscopy showed polyps. Source of History: patient Onset: yesterday Position: abdomen Symptom Intensity: 06/18 Timing: other (persistent) Associated Symptoms: + nausea, No fevers, No chills, No vomiting, No back pain Review of Systems See HPI for pertinent positives & negatives. A total of 10 systems reviewed and were otherwise negative. Past Medical & Surgical Medical Problems: (1) Carpal tunnel syndrome (2) Depression (3) Hyperlipidemia Social History Smoking Status: Current Every Day Smoker Alcohol Use: none Drug Use: none Marital Status: Housing Status: lives with family Occupation Status: employed Current/Historical Medications Scheduled Atorvastatin (Lipitor), 10 MG PO DAILY Lisinopril (Zestril), 10 MG PO DAILY Paroxetine (Paxil), 40 MG PO DAILY Allergies Coded Allergies: Tramadol (Verified Allergy, Unknown, ,, 11/21/17) interacts with paxil and doesn't make the paxil work for him Physical Exam Vital Signs Date Time Temp Pulse Resp B/P (MAP) Pulse Ox O2 Delivery O2 Flow Rate FiO2 11/22/17 00:43 65 16 120/87 97 Room Air 11/21/17 23:37 36.7 76 16 143/84 93 Room Air 11/21/17 22:15 58 21 98 11/21/17 22:00 128/91 11/21/17 21:45 59 18 99 11/21/17 21:17 57 11/21/17 21:12 57 16 143/94 98 Room Air 11/21/17 20:03 36.7 69 18 130/82 99 Room Air Physical Exam GENERAL: Patient is awake, alert, very anxious and uncomfortable appearing. He appears to be in significant pain. EYES: The conjunctivae are clear. The pupils are round and reactive. EARS, NOSE, MOUTH AND THROAT: The nose is without any evidence of any deformity. Mucous membranes are moist tongue is midline NECK: The neck is nontender and supple. RESPIRATORY: Normal respiratory effort is noted there is no evidence of wheezing rhonchi or rales CARDIOVASCULAR: Regular rate and rhythm noted there no murmurs rubs or gallops normal S1 normal S2 GASTROINTESTINAL: The abdomen is mildly distended but soft. Diffuse tenderness to palpation, especially in the right middle and right lower quadrant. BACK: No midline tenderness or or step-off noted range of motion in flexion extension as well as rotation no signs of muscle spasm noted MUSCULOSKELETAL/EXTREMITIES: There is no evidence of gross deformity full range of motion is noted in the hips and shoulders SKIN: There is no obvious evidence of any rash. There are no petechiae, pallor or cyanosis noted. NEUROLOGIC: Patient is awake alert and oriented x3 Medical Decision & Procedures ER Provider Diagnostic Interpretation: Radiology results as stated below per my review and radiologist interpretation: ABD/PELVIS IV AND ORAL CONT CT DOSE: 355.29 mGy.cm HISTORY: Right lower quadrant pain RLQ pain TECHNIQUE: Multiaxial CT images of the abdomen and pelvis were performed following the use of intravenous and oral contrast. A dose lowering technique was utilized adhering to the principles of ALARA. COMPARISON STUDY: None. FINDINGS: The lung bases are clear. The liver, spleen, gallbladder, pancreas, kidneys, and adrenal glands are within normal limits. No bowel wall thickening or obstruction. The pelvic organs are unremarkable. No suspicious lytic or blastic osseous lesions. The appendix as compared to the prior study shows subtle in homogeneity in reference to the periappendiceal fat. Pancreas has a maximum diameter of 7 mm at. At its base at the juncture with the cecum thickness increases to 1 cm with a slight increase in periappendiceal infiltrative change. This suggestive of low-grade appendicitis. There is no evidence for abscess collection or obstruction. There is slight bladder wall thickening possibly secondary to is relatively contracted state. Bowel pattern is nonobstructive. IMPRESSION: 1. Findings consistent with a low-grade acute appendicitis with slight thickening of the appendix and a trace amount of inflammatory change the surrounding periappendiceal fat. 2. No evidence for abscess collection or obstruction. 3. Remainder the study is unremarkable. The above report was generated using voice recognition software. It may contain grammatical, syntax or spelling errors. Electronically signed by: iSlvio Cantu M.D. 11/21/2017 11:10 PM Laboratory Results 11/21/17 20:15 Red Blood Count 5.09, Mean Corpuscular Volume 87.6, Mean Corpuscular Hemoglobin 31.6, Mean Corpuscular Hemoglobin Concent 36.1, Mean Platelet Volume 9.2, Neutrophils (%) (Auto) 67.1, Lymphocytes (%) (Auto) 22.3, Monocytes (%) (Auto) 7.2, Eosinophils (%) (Auto) 2.8, Basophils (%) (Auto) 0.3, Neutrophils # (Auto) 6.94, Lymphocytes # (Auto) 2.30, Monocytes # (Auto) 0.74, Eosinophils # (Auto) 0.29, Basophils # (Auto) 0.03 11/21/17 20:15 Test 11/21/17 20:05 11/21/17 20:15 Urine Color YELLOW Urine Appearance CLEAR (CLEAR) Urine pH 7.0 (4.5-7.5) Urine Specific [place] 1.012 (1.000-1.030) Urine Protein NEG (NEG) Urine Glucose (UA) NEG (NEG) Urine Ketones NEG (NEG) Urine Occult Blood NEG (NEG) Urine Nitrite NEG (NEG) Urine Bilirubin NEG (NEG) Urine Urobilinogen NEG (NEG) Urine Leukocyte Esterase NEG (NEG) White Blood Count 10.33 K/uL (4.8-10.8) Red Blood Count 5.09 M/uL (4.7-6.1) Hemoglobin 16.1 g/dL (14.0-18.0) Hematocrit 44.6 % (42-52) Mean Corpuscular Volume 87.6 fL (80-100) Mean Corpuscular Hemoglobin 31.6 pg (25-34) Mean Corpuscular Hemoglobin Concent 36.1 g/dl (32-36) Platelet Count 348 K/uL (130-400) Mean Platelet Volume 9.2 fL (7.4-10.4) Neutrophils (%) (Auto) 67.1 % Lymphocytes (%) (Auto) 22.3 % Monocytes (%) (Auto) 7.2 % Eosinophils (%) (Auto) 2.8 % Basophils (%) (Auto) 0.3 % Neutrophils # (Auto) 6.94 K/uL (1.4-6.5) Lymphocytes # (Auto) 2.30 K/uL (1.2-3.4) Monocytes # (Auto) 0.74 K/uL (0.11-0.59) Eosinophils # (Auto) 0.29 K/uL (0-0.5) Basophils # (Auto) 0.03 K/uL (0-0.2) RDW Standard Deviation 41.2 fL (36.4-46.3) RDW Coefficient of Variation 12.8 % (11.5-14.5) Immature Granulocyte % (Auto) 0.3 % Immature Granulocyte # (Auto) 0.03 K/uL (0.00-0.02) Anion Gap 3.0 mmol/L (3-11) Est Creatinine Clear Calc Drug Dose 110.1 ml/min Estimated GFR () 116.3 Estimated GFR (Non- 100.3 BUN/Creatinine Ratio 11.2 (10-20) Calcium Level 9.3 mg/dl (8.5-10.1) Total Bilirubin 0.4 mg/dl (0.2-1) Direct Bilirubin < 0.1 mg/dl (0-0.2) Aspartate Amino Transf (AST/SGOT) 14 U/L (15-37) Alanine Aminotransferase (ALT/SGPT) 22 U/L (12-78) Alkaline Phosphatase 85 U/L (45-117) Total Protein 7.5 gm/dl (6.4-8.2) Albumin 3.9 gm/dl (3.4-5.0) Lipase 69 U/L (73-393) Laboratory results per my review. Medications Administered Medications (Trade) Dose Ordered Sig/Dg Route Start Time Stop Time Status Last Admin Dose Admin Sodium Chloride 1,000 ml @ 999 mls/hr Q1H1M STAT IV 11/21/17 20:18 11/21/17 21:18 DC 11/21/17 20:46 999 MLS/HR Ondansetron HCl (Zofran Inj) 4 mg NOW STAT IV 11/21/17 20:18 11/21/17 20:20 DC 11/21/17 20:46 4 MG Morphine Sulfate (MoRPHine SULFATE INJ) 4 mg Q15M PRN IV 1/13/18 20:30 12/05/17 20:29 11/21/17 23:47 4 MG Cefoxitin Sodium 2000 mg/Dextrose 60 ml @ 120 mls/hr NOW STAT IV 11/22/17 00:16 11/22/17 00:45 DC 11/22/17 00:21 120 MLS/HR ED Course 2016: The patient was evaluated in room C8. A complete history and physical examination were performed. 2018: Zofran 4 mg IV, NSS 1000 ml @ 999 mls/hr IV. 2030: Morphine Sulfate 4 mg IV. 2324: I discussed the patients case with Dr. Villanueva, [facility]. The patient will be further evaluated. 0013: Mefoxin 2000 mg/60 ml D5W 2000 mg IV. Medical Decision Prior records/ancillary studies reviewed. Triage Nursing notes reviewed. The patient's history was concerning for abdominal pain. Differential diagnosis: Etiologies such as appendicitis, diverticulitis, PUD, biliary pathology, UTI, pancreatitis, obstruction, mesenteric ischemia, aortic pathology, infections, inflammatory bowel disease, renal colic, as well as others were entertained. The patient is a 41-year-old male who presented to the emergency department for an evaluation of abdominal pain. The patient appeared to have significant abdominal pain especially in the right lower quadrant. Pain was reproducible on multiple evaluations. The patient was treated with IV fluids IV pain medicine and IV antiemetics. He was also given IV antibiotics after consultation with the general surgeon. I discussed the patient's laboratory and radiographic studies with him. At this time he was found have signs of appendicitis on CT. He was evaluated by the general surgeon and was felt to be a good candidate for surgical management. Medication Reconcilliation Current Medication List: was personally reviewed by me Blood Pressure Screening Patient's blood pressure: Elevated blood pressure The patients elevated blood pressure will be further addressed by the hospital medicine team. Consults Time Called: 2321 Consulting Physician: Dr. Villanueva, [facility] Returned Call: [phone] I discussed the patients case with Dr. Villanueva, [facility]. The patient will be further evaluated. Impression Primary Impression: RLQ abdominal pain Additional Impression: Acute appendicitis Scribe Attestation The scribe's documentation has been prepared under my direction and personally reviewed by me in its entirety. I confirm that the note above accurately reflects all work, treatment, procedures, and medical decision making performed by me. Departure Information Dispostion Being Evaluated By Hospitalist Referrals Anabelle Masters PA-C (PCP) Patient Instructions My [facility] Problem Qualifiers Additional Impression: Acute appendicitis Acute appendicitis type: unspecified acute appendicitis type Qualified Codes : K35.80 - Unspecified acute appendicitis
[2017-11-21] MEDS ORDERED: PARO1TAB29 PO (20:39)
[2017-11-21] MEDS ORDERED: LISI-461 PO (20:39)
[2017-11-21] MEDS ORDERED: ATOR10TA82 PO (20:39)
[2017-11-21 20:43] LABS: BASO % 0.3 %; BASO ABS # 0.03 K/uL (0-0.2); EOS % 2.8 %; EOS ABS # 0.29 K/uL (0-0.5); HEMATOCRIT 44.6 % (42-52); HEMOGLOBIN 16.1 g/dL (14.0-18.0); IG# 0.03 K/uL (0.00-0.02); LYMPH % 22.3 %; MEAN CELL VOLUME 87.6 fL (80-100); MEAN CORPUSCULAR HEMOGLOBIN 31.6 pg (25-34); MEAN CORPUSCULAR HGB CONC 36.1 g/dl (32-36); MEAN PLATELET VOLUME 9.2 fL (7.4-10.4); MONO % 7.2 %; MONO ABS # 0.74 K/uL (0.11-0.59); NEUT % 67.1 %; NEUT ABS # 6.94 K/uL (1.4-6.5); PLATELET COUNT 348 K/uL (130-400); RED CELL DISTRIBUTION WIDTH CV 12.8 % (11.5-14.5); RED CELL DISTRIBUTION WIDTH SD 41.2 fL (36.4-46.3); WHITE BLOOD COUNT 10.33 K/uL (4.8-10.8)
[2017-11-21] MEDS: MoRPHine SULFATE 4 MG/ML 1 ML CARP\\VIAL IV PRN ×3 (20:46→23:47)
[2017-11-21 21:00] LABS: ALBUMIN 3.9 gm/dl (3.4-5.0); ALT/SGPT 22 U/L (12-78); BLOOD UREA NITROGEN 11 mg/dl (7-18); CALCIUM 9.3 mg/dl (8.5-10.1); CARBON DIOXIDE 32 mmol/L (21-32); CREATININE 0.94 mg/dl (0.60-1.40); GLUCOSE 90 mg/dl (70-99); LIPASE 69 U/L (73-393); POTASSIUM 3.6 mmol/L (3.5-5.1); SODIUM 138 mmol/L (136-145)
[2017-11-21 21:03] LABS: ALKALINE PHOSPHATASE 85 U/L (45-117); AST/SGOT 14 U/L (15-37); TOTAL PROTEIN 7.5 gm/dl (6.4-8.2)
--- NOTE | 2017-11-21 23:11 | DIAGNOSTIC IMAGING REPORT ---
ABD/PELVIS IV AND ORAL CONT CT DOSE: 355.29 mGy.cm HISTORY: Right lower quadrant pain RLQ pain TECHNIQUE: Multiaxial CT images of the abdomen and pelvis were performed following the use of intravenous and oral contrast. A dose lowering technique was utilized adhering to the principles of ALARA. COMPARISON STUDY: None. FINDINGS: The lung bases are clear. The liver, spleen, gallbladder, pancreas, kidneys, and adrenal glands are within normal limits. No bowel wall thickening or obstruction. The pelvic organs are unremarkable. No suspicious lytic or blastic osseous lesions. The appendix as compared to the prior study shows subtle in homogeneity in reference to the periappendiceal fat. Pancreas has a maximum diameter of 7 mm at. At its base at the juncture with the cecum thickness increases to 1 cm with a slight increase in periappendiceal infiltrative change. This suggestive of low-grade appendicitis. There is no evidence for abscess collection or obstruction. There is slight bladder wall thickening possibly secondary to is relatively contracted state. Bowel pattern is nonobstructive. IMPRESSION: 1. Findings consistent with a low-grade acute appendicitis with slight thickening of the appendix and a trace amount of inflammatory change the surrounding periappendiceal fat. 2. No evidence for abscess collection or obstruction. 3. Remainder the study is unremarkable. The above report was generated using voice recognition software. It may contain grammatical, syntax or spelling errors. Electronically signed by: Silvio Cantu M.D. 11/21/2017 11:10 PM Dictated Date/Time: 11/21/2017 11:05 PM
[2017-11-22] VITALS (10 sets, daily range): BP systolic 114–133; BP diastolic 64–85; PULSE 64–85; TEMP 36.4–37.2; O2SAT 95–99; Ht 180.3 cm; Wt 75.9 kg
[2017-11-22] MEDS ORDERED: CEFOXITIN 2000MG/60 ML D5W IV STA ×2 (00:13)
--- NOTE | 2017-11-22 00:13 | History and Physical ---
History & Physical Date & Time of Service: Nov 22, 2017 at 00:07 Chief Complaint: Lower R Abdomen Pain Into Bladder Primary Care Physician: Anabelle Masters PA-C History of Present Illness Source: patient The patient is a 41 year old male who presents to the Emergency Room with complaints of persistent lower abdominal pain since yesterday. He rates his pain as a 6/10 in severity. He has been nauseous but has not vomited. He also complains of pain in his bladder for the past few weeks. He denies any fevers, chills or back pain. He reports he last had a CT scan of his abdomen approximately 1 month ago. He states his most recent colonoscopy showed polyps. I saw pt at ER, I reviewed pt's H/P with pt, pt is still have RLQ pain, with nausea, pt denies fever, no diarrhea, Social History Smoking Status: Current Every Day Smoker Smokeless Tobacco Use: No Alcohol Use: occasionally Drug Use: none Marital Status: Occupational Status: employed Allergies Coded Allergies: Tramadol (Verified Allergy, Unknown, ,, 11/21/17) interacts with paxil and doesn't make the paxil work for him Home Medications Scheduled Atorvastatin (Lipitor), 10 MG PO DAILY Lisinopril (Zestril), 10 MG PO DAILY Paroxetine (Paxil), 40 MG PO DAILY Review of Systems Constitutional: No fever, No chills, No sweats, No weight loss, No weakness, No fatigue, No problem reported Eyes: No worsening of vision, No eye pain, No redness, No discharge, No diplopia, No problem reported ENT: No hearing loss, No unusual epistaxis, No nasal symptoms, No sore throat, No tinnitus, No dental problems, No trouble swallowing, No problem reported Respiratory: No cough, No sputum, No wheezing, No shortness of breath, No dyspnea on exertion, No dyspnea at rest, No hemoptysis, No problem reported Cardiovascular: No chest pain, No orthopnea, No PND, No edema, No claudication , No palpitations, No problem reported Abdomen: No pain, No nausea, No vomiting, No diarrhea, No constipation, No GI bleeding, No problem reported Musculoskeletal: No joint pain, No muscle pain, No swelling, No calf pain, No problem reported Genitourinary - Male: No hematuria, No dysuria, No urinary frequency, No urinary urgency, No urinary hesitancy, No urinary retention, No urinary incontinence, No penile discharge, No lesions, No impotence, No problem reported Neurologic: No memory loss, No paralysis, No weakness, No numbness/tingling, No vertigo, No balance problems, No problem reported Psychiatric: No depression symptoms, No anhedonism, No anxiety, No insomnia, No substance abuse, No problem reported Endocrine: No fatigue, No excessive thirst, No excessive urination, No problem reported Hematologic / Lymphatic: No abnormal bleeding/bruising, No clotting problems, No swollen lymph nodes, No night sweats, No problem reported Physical Exam Vital Signs Date Time Temp Pulse Resp B/P (MAP) Pulse Ox O2 Delivery O2 Flow Rate FiO2 11/21/17 23:37 36.7 76 16 143/84 93 Room Air 11/21/17 22:15 58 21 98 11/21/17 22:00 128/91 11/21/17 21:45 59 18 99 11/21/17 21:17 57 11/21/17 21:12 57 16 143/94 98 Room Air 11/21/17 20:03 36.7 69 18 130/82 99 Room Air General Appearance: WD/WN, + mild distress Head: normocephalic Eyes: normal inspection ENT: normal ENT inspection Neck: supple, no JVD Respiratory/Chest: chest non-tender, lungs clear Cardiovascular: regular rate, rhythm, no edema, no gallop, no JVD, no murmur Abdomen/GI: normal bowel sounds, soft, no organomegaly, no pulsatile mass, + tenderness (at RLQ, no rebound pain) Back: normal inspection Extremities/Musculoskelatal: normal inspection, no calf tenderness, normal capillary refill Neurologic/Psych: no motor/sensory deficits, alert, normal mood/affect Skin: normal color, warm/dry, no rash Lymphatic: no adenopathy Diagnostics Laboratory Results Results Past 24 Hours Test 11/21/17 20:05 11/21/17 20:15 Range/Units Urine Color YELLOW Urine Appearance CLEAR CLEAR Urine pH 7.0 4.5-7.5 Urine Specific [place] 1.012 1.000-1.030 Urine Protein NEG NEG Urine Glucose (UA) NEG NEG Urine Ketones NEG NEG Urine Occult Blood NEG NEG Urine Nitrite NEG NEG Urine Bilirubin NEG NEG Urine Urobilinogen NEG NEG Urine Leukocyte Esterase NEG NEG White Blood Count 10.33 4.8-10.8 K/uL Red Blood Count 5.09 4.7-6.1 M/uL Hemoglobin 16.1 14.0-18.0 g/dL Hematocrit 44.6 42-52 % Mean Corpuscular Volume 87.6 80-100 fL Mean Corpuscular Hemoglobin 31.6 25-34 pg Mean Corpuscular Hemoglobin Concent 36.1 32-36 g/dl Platelet Count 348 130-400 K/uL Mean Platelet Volume 9.2 7.4-10.4 fL Neutrophils (%) (Auto) 67.1 % Lymphocytes (%) (Auto) 22.3 % Monocytes (%) (Auto) 7.2 % Eosinophils (%) (Auto) 2.8 % Basophils (%) (Auto) 0.3 % Neutrophils # (Auto) 6.94 1.4-6.5 K/uL Lymphocytes # (Auto) 2.30 1.2-3.4 K/uL Monocytes # (Auto) 0.74 0.11-0.59 K/uL Eosinophils # (Auto) 0.29 0-0.5 K/uL Basophils # (Auto) 0.03 0-0.2 K/uL RDW Standard Deviation 41.2 36.4-46.3 fL RDW Coefficient of Variation 12.8 11.5-14.5 % Immature Granulocyte % (Auto) 0.3 % Immature Granulocyte # (Auto) 0.03 0.00-0.02 K/uL Sodium Level 138 136-145 mmol/L Potassium Level 3.6 3.5-5.1 mmol/L Chloride Level 103 98-107 mmol/L Carbon Dioxide Level 32 21-32 mmol/L Anion Gap 3.0 3-11 mmol/L Blood Urea Nitrogen 11 7-18 mg/dl Creatinine 0.94 0.60-1.40 mg/dl Est Creatinine Clear Calc Drug Dose 110.1 ml/min Estimated GFR () 116.3 Estimated GFR (Non- 100.3 BUN/Creatinine Ratio 11.2 10-20 Random Glucose 90 70-99 mg/dl Calcium Level 9.3 8.5-10.1 mg/dl Total Bilirubin 0.4 0.2-1 mg/dl Direct Bilirubin < 0.1 0-0.2 mg/dl Aspartate Amino Transf (AST/SGOT) 14 15-37 U/L Alanine Aminotransferase (ALT/SGPT) 22 12-78 U/L Alkaline Phosphatase 85 45-117 U/L Total Protein 7.5 6.4-8.2 gm/dl Albumin 3.9 3.4-5.0 gm/dl Lipase 69 73-393 U/L Diagnostic Radiology FINDINGS: The lung bases are clear. The liver, spleen, gallbladder, pancreas, kidneys, and adrenal glands are within normal limits. No bowel wall thickening or obstruction. The pelvic organs are unremarkable. No suspicious lytic or blastic osseous lesions. The appendix as compared to the prior study shows subtle in homogeneity in reference to the periappendiceal fat. Pancreas has a maximum diameter of 7 mm at. At its base at the juncture with the cecum thickness increases to 1 cm with a slight increase in periappendiceal infiltrative change. This suggestive of low-grade appendicitis. There is no evidence for abscess collection or obstruction. There is slight bladder wall thickening possibly secondary to is relatively contracted state. Bowel pattern is nonobstructive. IMPRESSION: 1. Findings consistent with a low-grade acute appendicitis with slight thickening of the appendix and a trace amount of inflammatory change the surrounding periappendiceal fat. 2. No evidence for abscess collection or obstruction. 3. Remainder the study is unremarkable. Impression Assessment and Plan IMP: acute appendicitis plan, pt will have laparoscopic appendectomy, possible open , D/W benefits, risks and alternatives of the procedure, the risks -infection, bleeding, injury Bowel, abscess, pt understood, he agrees with the plan, I answered all questions , ASA Classification: ASA Class II Level of Care Med/Surg VTE Prophylaxis Risk Level: Low Note Total Time: Critical Care 30 - 74 minutes
--- NOTE | 2017-11-22 00:14 | History & Physical Bridge Note ---
H&P Re-Evaluation Bridge Note: I have examined the patient, reviewed the History & Physical and in the interval since the performance of the History & Physical I have noted the following changes of clinical significance: No changes noted
[2017-11-22] MEDS ORDERED: CEFOXITIN IV 2,000 MG in DEXTROSE 5% 50ML 50 ML IV STA (00:16)
[2017-11-22] MEDS ORDERED: PROPOFOL IV EMULSION 10 MG/ML 20 ML VIAL IV ONE (00:23)
[2017-11-22] MEDS ORDERED: ROCURONIUM BROMID 50MG/5ML SYR ONE (00:23)
[2017-11-22] MEDS ORDERED: DEXAMETHASONE SOD INJ 4 MG/ML VIAL ONE (00:23)
[2017-11-22] MEDS ORDERED: SUCCINYLCHOLINE CHLORIDE 20 MG/ML 10 ML VIAL IV ONE (00:23)
[2017-11-22] MEDS ORDERED: GLYCOPYRROLATE INJ 0.2 MG/ML VIAL ONE (00:23)
[2017-11-22] MEDS ORDERED: ONDANSETRON INJ 2 MG/ML 2 ML VIAL ONE (00:23)
[2017-11-22] MEDS ORDERED: NEOSTIGMINE METHYLSULFATE 5 MG/5 ML SYR ONE (00:23)
[2017-11-22] MEDS ORDERED: FENTANYL CITRATE INJ 50 MCG/1 ML 2 ML VIAL ONE ×2 (00:27→02:26)
[2017-11-22] MEDS ORDERED: MIDAZOLAM HCL 1 MG/ML 2ML VIAL ONE (00:27)
[2017-11-22] MEDS ORDERED: LIDOCAINE HCL 1% 20 ML VIAL ONE (00:44)
[2017-11-22] MEDS ORDERED: BACITRACIN OINT 15 GM TUBE ONE (00:44)
[2017-11-22] MEDS ORDERED: BUPIVACAINE 0.5 % 5 MG/1 ML MPF 30ML VIAL ONE (00:44)
[2017-11-22] MEDS ORDERED: EpHEDrine SULFATE INJ 50 MG/ML AMP IV PRN (00:45)
[2017-11-22] MEDS ORDERED: HYDROmorphone INJ 1 MG/ML SYR IV PRN (00:45)
[2017-11-22] MEDS ORDERED: ATROPINE SULFATE 0.1 MG/ML 5ML SYR IV PRN (00:45)
[2017-11-22] MEDS ORDERED: ONDANSETRON INJ 2 MG/ML 2 ML VIAL IV PRN ×2 (00:45→02:15)
[2017-11-22] MEDS ORDERED: PROMETHAZINE HCL INJ 12.5 MG in SODIUM CHLORIDE 0.9% 50ML 50 ML IV PRN (00:45)
--- NOTE | 2017-11-22 02:11 | [facility] Post Operative Brief Note ---
Immediate Operative Summary Operative Date Nov 22, 2017. Pre-Operative Diagnosis Acute Appendicitis Post-Operative Diagnosis Acute Appendicitis Procedure(s) Performed Laparoscopic Appendectomy Surgeon Dr. Villanueva Senior Back End Java Developer Surgeon(s) None Estimated Blood Loss 10 ml Findings acute appendicitis Fluids (cc crystalloids) 1100ml Specimens Permanment Specimen: A: Appendix Drains none Anesthesia general Complication(s) None Disposition Recovery Room / PACU
[2017-11-22] MEDS ORDERED: ACETAMINOPHEN 325 MG TAB PO PRN (02:15)
[2017-11-22] MEDS: FENTANYL CITRATE INJ 50 MCG/1 ML 2 ML VIAL IV PRN ×2 (02:25→02:30)
--- NOTE | 2017-11-22 02:56 | OPERATIVE REPORT ---
DATE OF OPERATION: 11/22/2017 PREOPERATIVE DIAGNOSIS: Acute appendicitis. POSTOPERATIVE DIAGNOSIS: Same. PROCEDURE: Laparoscopic appendectomy. SURGEON: Celestino Villanueva MD. ANESTHESIA: General. ESTIMATED BLOOD LOSS: About 10 mL. FINDINGS: Acute appendicitis. COMPLICATIONS: None. INDICATIONS FOR THE PROCEDURE: This is a 41-year-old gentleman who presented to the ED with 1 day history of right lower quadrant pain. The patient had a CT scan diagnosed of acute appendicitis. The patient will be required to do laparoscopic appendectomy, possible open. I did talk to the patient about the benefit and risk, alternate procedure. I indicated the risks may include but not limited such as bleeding, infection, injury to the bowel, abscess, active acute appendicitis. The patient understands. He signed informed consent and I answered all questions. DETAILS OF PROCEDURE: We brought the patient to the OR, put the patient in the supine position. The patient received SCD on bilateral legs to prevent DVT. Also, the patient received 2 grams cefoxitin IV for prophylactic antibiotic. The patient received general anesthesia without difficulty. The abdomen was prepped and draped in routine sterile fashion. After a timeout, I injected the local anesthesia by using 1% lidocaine mixed with 0.5% Marcaine just above the umbilicus. Then I made a small incision just above umbilicus, opened fascia and opened peritoneum under direct vision. I put a Mckenna trocar in, connected to CO2 to create pneumoperitoneum. Flow rate is 6 liter per minute. Pressure not more than 14 mmHg. Once we got a nice pneumoperitoneum, we put another two 5 mm trocar on the left lower quadrant area. Once all trocars in and mobilized, we looked around the abdomen and showed normal findings in the stomach, small bowel, large bowel, liver, no free fluid in the pelvic area and then we mobilized the appendix and found the patient had appendix with slightly edema and inflammation. Then I used a harmonic to take down appendiceal. Rechecked and no active bleeding and then I used Endo-LEANNE staple to transact on the base of the appendix, rechecked no active bleeding, no leak. Then we removed the appendix through the catcher bag. Then we reinserted Mckenna trocar in and connected to CO2 to create pneumoperitoneum again to look around the abdomen and no active bleeding, no leak from the staple line and no injury to the bowel. We followed the small bowel over the 2 feet long, all the small bowel was normal finding and then we removed all trocars under direct vision. No active bleeding from trocar sites. The pneumoperitoneum was released. Then I closed the umbilical incision, fascial layer by using #1 Vicryl [id number] x2, closed subcutaneous layer by using 2-0 Vicryl, closed skin by using 4-0 Vicryl continuous running, closed another 3.5 mm trocar site skin only by using 4-0 Vicryl and then we put the dressing on. After the procedure, we did remove the Baeza catheter. The patient tolerated the procedure well. All the instrument, needle and sponge count were correct x2 at the end of case and the specimen sent to pathology. The patient transferred to recovery room in stable condition. I attest to the content of the Intraoperative Record and any orders documented therein. Any exceptions are noted below. CARYL
--- NOTE | 2017-11-22 02:58 | Anesthesiology Progress Note ---
Anesthesia Post Op Note Date & Time Nov 22, 2017 at 02:58 Vital Signs Pain Intensity: 2 Vital Signs Past 12 Hours Date Time Temp Pulse Resp B/P (MAP) Pulse Ox O2 Delivery O2 Flow Rate FiO2 11/22/17 02:45 36.1 74 16 130/85 99 Nasal Cannula 3 11/22/17 02:35 76 16 114/76 100 Nasal Cannula 3 11/22/17 02:25 76 21 128/60 99 Nasal Cannula 3 11/22/17 02:16 36.0 97 21 131/80 97 Oxymask 5 11/22/17 00:43 65 16 120/87 97 Room Air 11/21/17 23:37 36.7 76 16 143/84 93 Room Air 11/21/17 22:15 58 21 98 11/21/17 22:00 128/91 11/21/17 21:45 59 18 99 11/21/17 21:17 57 11/21/17 21:12 57 16 143/94 98 Room Air 11/21/17 20:03 36.7 69 18 130/82 99 Room Air Notes Mental Status: alert / awake / arousable, participated in evaluation Pt Amnestic to Procedure: Yes Nausea / Vomiting: adequately controlled Pain: adequately controlled Airway Patency, RR, SpO2: stable & adequate BP & HR: stable & adequate Hydration State: stable & adequate Anesthetic Complications: no major complications apparent
[2017-11-22] MEDS ORDERED: D5W AND 1/2NSS + 20MEQ KCL 1,000 ML IV SCH (03:30)
[2017-11-22] MEDS: HYDROmorphone INJ 1 MG/ML SYR IV PRN ×2 (03:49→08:29)
[2017-11-22] MEDS: OXYCODONE/ACETAMINOPHEN 5-325 TAB PO PRN ×3 (05:50→14:15)
[2017-11-22 07:03] LABS: BASO % 0.1 %; BASO ABS # 0.02 K/uL (0-0.2); EOS % 0.2 %; EOS ABS # 0.04 K/uL (0-0.5); HEMATOCRIT 40.3 % (42-52); HEMOGLOBIN 14.2 g/dL (14.0-18.0); IG# 0.07 K/uL (0.00-0.02); LYMPH % 5.1 %; MEAN CORPUSCULAR HGB CONC 35.2 g/dl (32-36); MEAN PLATELET VOLUME 9.8 fL (7.4-10.4); MONO % 0.8 %; MONO ABS # 0.16 K/uL (0.11-0.59); NEUT % 93.4 %; NEUT ABS # 18.46 K/uL (1.4-6.5); PLATELET COUNT 347 K/uL (130-400); RED CELL DISTRIBUTION WIDTH CV 12.9 % (11.5-14.5); RED CELL DISTRIBUTION WIDTH SD 41.5 fL (36.4-46.3); WHITE BLOOD COUNT 19.75 K/uL (4.8-10.8)
[2017-11-22] MEDS ORDERED: CEFTRIAXONE SOD INJ 1 GM in DEXTROSE 5% ADD-VANTAGE 50ML 50 ML IV SCH (09:00)
--- NOTE | 2017-11-22 09:00 | Surgery Progress Note ---
Surgery Progress Note Date of Service Nov 22, 2017. Subjective + feeling well F/U S/P lap appy, pt is doing better, less abdominal pain, no nausea, no vomiting, no fever, but WBC 04287 Objective Vital Signs: Date Time Temp Pulse Resp B/P (MAP) Pulse Ox O2 Delivery O2 Flow Rate FiO2 11/22/17 07:19 Room Air 11/22/17 07:12 36.7 71 17 118/71 (87) 96 Room Air 11/22/17 05:45 36.9 65 16 117/71 (86) 97 Room Air 11/22/17 04:45 36.4 64 18 120/75 (90) 99 Nasal Cannula 1.0 11/22/17 03:50 36.4 67 17 124/76 (92) 98 Nasal Cannula 2.0 11/22/17 03:20 36.5 70 17 116/76 (89) 98 Nasal Cannula 2.0 11/22/17 03:15 95 Nasal Cannula 2.0 11/22/17 03:15 36.7 85 19 133/85 95 Nasal Cannula 2.0 11/22/17 03:15 Nasal Cannula 2.0 11/22/17 02:50 36.7 85 19 133/85 (101) 95 Nasal Cannula 2.0 11/22/17 02:45 36.1 74 16 130/85 99 Nasal Cannula 3 11/22/17 02:35 76 16 114/76 100 Nasal Cannula 3 11/22/17 02:25 76 21 128/60 99 Nasal Cannula 3 11/22/17 02:16 36.0 97 21 131/80 97 Oxymask 5 11/22/17 00:43 65 16 120/87 97 Room Air 11/21/17 23:37 36.7 76 16 143/84 93 Room Air 11/21/17 22:15 58 21 98 11/21/17 22:00 128/91 11/21/17 21:45 59 18 99 11/21/17 21:17 57 11/21/17 21:12 57 16 143/94 98 Room Air 11/21/17 20:03 36.7 69 18 130/82 99 Room Air General Appearance: WD/WN, no apparent distress Head: normocephalic Neck: supple, no JVD Respiratory/Chest: chest non-tender, lungs clear Cardiovascular: regular rate, rhythm, no edema, no gallop, no JVD Abdomen: normal bowel sounds, non tender (incision sites, no rebound pain), non distended, soft, + tenderness Incision(s): clean, dry, intact Extremities: normal range of motion, non-tender, normal inspection Laboratory Results: Results Past 24 Hours Test 11/21/17 20:05 11/21/17 20:15 11/22/17 05:20 Range/Units Urine Color YELLOW Urine Appearance CLEAR CLEAR Urine pH 7.0 4.5-7.5 Urine Specific [place] 1.012 1.000-1.030 Urine Protein NEG NEG Urine Glucose (UA) NEG NEG Urine Ketones NEG NEG Urine Occult Blood NEG NEG Urine Nitrite NEG NEG Urine Bilirubin NEG NEG Urine Urobilinogen NEG NEG Urine Leukocyte Esterase NEG NEG White Blood Count 10.33 19.75 4.8-10.8 K/uL Red Blood Count 5.09 4.58 4.7-6.1 M/uL Hemoglobin 16.1 14.2 14.0-18.0 g/dL Hematocrit 44.6 40.3 42-52 % Mean Corpuscular Volume 87.6 88.0 80-100 fL Mean Corpuscular Hemoglobin 31.6 31.0 25-34 pg Mean Corpuscular Hemoglobin Concent 36.1 35.2 32-36 g/dl Platelet Count 348 347 130-400 K/uL Mean Platelet Volume 9.2 9.8 7.4-10.4 fL Neutrophils (%) (Auto) 67.1 93.4 % Lymphocytes (%) (Auto) 22.3 5.1 % Monocytes (%) (Auto) 7.2 0.8 % Eosinophils (%) (Auto) 2.8 0.2 % Basophils (%) (Auto) 0.3 0.1 % Neutrophils # (Auto) 6.94 18.46 1.4-6.5 K/uL Lymphocytes # (Auto) 2.30 1.00 1.2-3.4 K/uL Monocytes # (Auto) 0.74 0.16 0.11-0.59 K/uL Eosinophils # (Auto) 0.29 0.04 0-0.5 K/uL Basophils # (Auto) 0.03 0.02 0-0.2 K/uL RDW Standard Deviation 41.2 41.5 36.4-46.3 fL RDW Coefficient of Variation 12.8 12.9 11.5-14.5 % Immature Granulocyte % (Auto) 0.3 0.4 % Immature Granulocyte # (Auto) 0.03 0.07 0.00-0.02 K/uL Sodium Level 138 136-145 mmol/L Potassium Level 3.6 3.5-5.1 mmol/L Chloride Level 103 98-107 mmol/L Carbon Dioxide Level 32 21-32 mmol/L Anion Gap 3.0 3-11 mmol/L Blood Urea Nitrogen 11 7-18 mg/dl Creatinine 0.94 0.60-1.40 mg/dl Est Creatinine Clear Calc Drug Dose 110.1 ml/min Estimated GFR () 116.3 Estimated GFR (Non- 100.3 BUN/Creatinine Ratio 11.2 10-20 Random Glucose 90 70-99 mg/dl Calcium Level 9.3 8.5-10.1 mg/dl Total Bilirubin 0.4 0.2-1 mg/dl Direct Bilirubin < 0.1 0-0.2 mg/dl Aspartate Amino Transf (AST/SGOT) 14 15-37 U/L Alanine Aminotransferase (ALT/SGPT) 22 12-78 U/L Alkaline Phosphatase 85 45-117 U/L Total Protein 7.5 6.4-8.2 gm/dl Albumin 3.9 3.4-5.0 gm/dl Lipase 69 73-393 U/L Assessment & Plan F/U S/P lap appy pt is doing better, WBC 32843, repeat CBC afternoon, OOB full liquid diet, will F/U full liquids
[2017-11-22] MEDS ORDERED: OXYC-57 PO (10:37)
--- NOTE | 2017-11-22 10:40 | Discharge Instructions ---
Discharge Instructions Date of Service Nov 22, 2017. Admission Reason for Admission: Acute Appendicitis Discharge Discharge Diagnosis / Problem: S/P laparoscopic appendectomy Discharge Goals Goal(s): Decrease discomfort, Improve function Activity Recommendations Activity Limitations: per Instructions/Follow-up section Lifting Limitations: no more than 25 pounds Exercise/Sports Limitations: rest today May Resume Sexual Activity: when tolerated Shower/Bathe: may shower/bathe in 3 days Driving or Machine Use: resume 3 days after discharge . Instructions / Follow-Up Instructions / Follow-Up keep the dressing on for 4 days, he can take a shower on 11/26/2017, no driving while taking pain medicine. follow up his PCP in 1 week, Current Hospital Diet Patient's current hospital diet: Full Liquid Diet Discharge Diet Recommended Diet: Regular Diet Procedures Procedures Performed: Laparoscopic Appendectomy Pending Studies Studies pending at discharge: no Medical Emergencies . Who to Call and When: Medical Emergencies: If at any time you feel your situation is an emergency, please call 911 immediately. . Non-Emergent Contact Non-Emergency issues call your: Primary Care Provider Call Non-Emergent contact if: you have a fever, temperature is above 100.5, your pain is not controlled, your pain is worsening, wound has increased drainage, wound has increased redness . "Provider Documentation" section prepared by Celestino Villanueva. . VTE Core Measure Inpt VTE Proph given/why not?: SCD's [place] Drug Monitoring Program Search Results: no issues identified
[2017-11-22] MEDS ORDERED: NURSING VERBAL MED ORDER ONE (13:15)
[2017-11-22] MEDS ORDERED: NICOTINE 21 MG/24 HR TDSY EXT SCH (13:30)
[2017-11-22 14:56] LABS: EOS % 0.1 %; EOS ABS # 0.01 K/uL (0-0.5); HEMATOCRIT 41.1 % (42-52); HEMOGLOBIN 14.4 g/dL (14.0-18.0); IG# 0.04 K/uL (0.00-0.02); LYMPH % 8.5 %; LYMPH ABS # 1.47 K/uL (1.2-3.4); MEAN CELL VOLUME 87.4 fL (80-100); MEAN CORPUSCULAR HEMOGLOBIN 30.6 pg (25-34); MEAN PLATELET VOLUME 9.6 fL (7.4-10.4); MONO % 5.1 %; MONO ABS # 0.88 K/uL (0.11-0.59); NEUT % 86.1 %; NEUT ABS # 14.82 K/uL (1.4-6.5); PLATELET COUNT 390 K/uL (130-400); RED CELL DISTRIBUTION WIDTH CV 12.8 % (11.5-14.5); RED CELL DISTRIBUTION WIDTH SD 41.2 fL (36.4-46.3); WHITE BLOOD COUNT 17.22 K/uL (4.8-10.8)
--- NOTE | 2017-11-22 21:59 | DISCHARGE SUMMARY ---
ADMITTING DIAGNOSIS: Acute appendicitis. DISCHARGE DIAGNOSIS: Same. OPERATION: Laparoscopic appendectomy. SURGEON: Celestino Villanueva MD. DETAILS OF DISCHARGE SUMMARY: This is a 41-year-old gentleman who presented to the ED with 1 day history of right lower quadrant pain. The patient had a CT scan diagnosis of acute appendicitis. We took the patient to the OR. We did laparoscopic appendectomy and the patient tolerated the procedure well. After the procedure, the patient transferred to recovery room in stable condition. I saw the patient early this morning. The patient is doing fine. No significant abdominal pain, no nausea, no vomiting. PHYSICAL EXAMINATION: VITAL SIGNS: 36.7, heart rate is 71, respiratory rate 17, blood pressure 118/71, O2 saturation 96% on room air. GENERAL: The patient is alert, awake, oriented x3. HEENT: With normal limitation. NEUROLOGIC: Intact. NECK: No JVD. CHEST: Bilateral lung sounds clear. HEART: Normal S1, S2. No murmur. ABDOMEN: Soft, no tenderness, no distention. All dressings intact. Bowel sounds positive. EXTREMITIES: No edema. However, we checked his white count today and it was 19,000. So I recommended the patient stay in the hospital overnight but the patient came to [place] to visit patient's [id number] and the patient have to go back tonight to his home about 3-1/2 hours away because patient will drive and go back. So, the plan is we will repeat his WBC in afternoon 2 p.m. If WBC has come down, the patient can be discharged and if still goes up, the patient has to stay at hospital. I did talk to the patient the plan and also talked to his uncle who is a nurse about this plan. I also gave patient the postop care instructions. The patient will follow up his PCP in 1 week. The patient understands. I answered all questions.
--- NOTE | 2017-11-23 11:14 | DISCHARGE SUMMARY ---
ADMITTING DIAGNOSIS: Acute appendicitis. DISCHARGE DIAGNOSIS: Same. OPERATION: Laparoscopic appendectomy. SURGEON: Celestino Villanueva MD. DETAILS OF DISCHARGE SUMMARY: This is a 41-year-old gentleman who presented to the ED with 1 day history of right lower quadrant pain. The patient had a CT scan diagnosis of acute appendicitis. We decided to take the patient to do laparoscopic appendectomy. I did talk to the patient about the benefit and risk, alternate procedure. I indicated the risks may include but not limited such as bleeding, infection, injury to the bowel abscess. The patient understands. We took the patient to the OR and in the OR we comfort for the patient had acute appendicitis. We did laparoscopic appendectomy. The patient tolerated the procedure well. After the procedure, the patient doing fine. PHYSICAL EXAMINATION: VITAL SIGNS: On physical exam, temperature is 37.2, heart rate 70, respiratory rate 16, blood pressure 122/83, O2 saturation 95% on room air. GENERAL: The patient is alert, awake, oriented x3. No distress. HEENT: With normal limitation. NEUROLOGIC: Intact. NECK: No JVD. CHEST: Bilateral lung sounds clear. HEART: Normal S1, S2. No murmur. ABDOMEN: Soft, nondistended. Bowel sounds positive. Slight tenderness on the incision site. EXTREMITIES: No edema. The patient wanted to go home same day after procedure in the afternoon. I did give patient the postop care instructions. The patient understands and I also gave the patient the instruction that the patient should come back to hospital ER if patient develops any severe abdominal pain, nausea, vomiting or temperature. The patient understands. The patient left about 3.5 hours from hospital. The patient will follow up with PCP in 1 week. The patient understands. I answered all questions. CARYL
== END 2017-11-22 16:20 | disposition home or self-care (01) ==
LOC: C.EDB 20:02 → C.3E 11-22 02:16 → ENRESERV 11-22 02:33
PROVIDERS: ADMIT Surgery; ATTEND Surgery
DX: K35.80 Unspecified acute appendicitis (principal); F32.9 Major depressive disorder, single episode, unspecified; Z79.899 Other long term (current) drug therapy; F17.200 Nicotine dependence, unspecified, uncomplicated; Z98.890 Other specified postprocedural states

== ENCOUNTER 2018-03-12 18:28 | Emergency (ER) | payer OTHER ==
[~2018-03-12] VITALS: Ht 180.3 cm; Wt 74.5 kg
[~2018-03-12 18:28] MED LIST changes: -ACET-1256 PO; -ADVIN25/60 INH; -ATOR-54 PO; +ATOR10TA82 PO; -DICY10CA55 PO; -PROM25TA9 PO
[2018-03-12 18:32] VITALS: BP 128/85; TEMP 36.6; Ht 180.3 cm; Wt 74.5 kg
[2018-03-12] MEDS ORDERED: IBUPROFEN 800 MG TAB PO STA (19:13)
[2018-03-12] MEDS ORDERED: CYCLOBENZAPRINE HCL 10 MG TAB PO STA (19:13)
--- NOTE | 2018-03-12 19:46 | DIAGNOSTIC IMAGING REPORT ---
R SHOULDER MIN 2 VIEWS ROUTINE HISTORY: 42 years-old Male RIGHT, EVAL PAIN acute right shoulder pain COMPARISON: Acute abdominal series radiographs 08/22/2017 TECHNIQUE: 3 views of the right shoulder FINDINGS: Mild degenerative changes of the glenohumeral joint with osteophytic spurring and subchondral sclerosis seen along the inferior portion of the joint space. There are only minimal AC joint degenerative changes. No acute fracture, dislocation or opaque foreign body identified. Imaged lung nye appear clear. IMPRESSION: Mild degenerative changes of the glenohumeral joint without acute fracture or dislocation. The above report was generated using voice recognition software. It may contain grammatical, syntax or spelling errors. Electronically signed by: González Patricio M.D. 03/12/2018 7:44 PM Dictated Date/Time: 03/12/2018 7:43 PM
[2018-03-12] MEDS ORDERED: CYCL10TA6 PO (19:59)
--- NOTE | 2018-03-12 20:00 | EMERGENCY ROOM VISIT NOTE ---
ED Visit Note First contact with patient: 18:37 CHIEF COMPLAINT: Right shoulder pain 1 day HISTORY OF PRESENT ILLNESS: Patient is a [id number] 42-year-old male who presents the emergency department for evaluation of right shoulder pain. His symptoms started when he was pushing a standard lawnmower yesterday. He complains of pain in the posterior aspect of the shoulder, that radiates into the deltoid region. It is a constant, sharp, burning pain, that he rates a 6/ 10 presently. Pain is worse with movement. He tried taking naproxen, and a Vicodin from a friend yesterday with minimal relief. He denies any prior history of right shoulder problems or injuries. REVIEW OF SYSTEMS: Review of systems as per HPI. All other systems reviewed were negative. At least 6 systems reviewed. PMH: Electronic medical records are reviewed and summarized as above/below. See Problem List.. SOCIAL HISTORY: Patient lives at home. Smoker. PHYSICAL EXAM: Vital Signs: Reviewed nurse's notes. CONSTITUTIONAL: Patient is a well-appearing 42-year-old male who is awake and alert and in no acute distress. MUSCULOSKELETAL: Examination of the right shoulder does not reveal any obvious deformity. There is no pain over the cervical spinous processes or in the cervical paraspinous musculature, but he is markedly tender in the right trapezius, extending toward the top of the shoulder. There is obvious spasm appreciated. He does not have any pain over the biceps tendon of the rotator cuff insertion. Range of motion is full, but uncomfortable. Good rotator cuff strength testing. EMERGENCY DEPARTMENT COURSE: The patient was seen and assessed as above. Right shoulder x-rays were obtained and noted some mild degenerative changes without evidence for acute fracture. Patient's pain is more muscular, and in the right trapezius distribution. He was medicated with ibuprofen and Flexeril in the emergency department. Supportive care measures were discussed. Differential diagnoses entertained included sprain, strain, contusion, tendinitis, bursitis, among others. Medication reconciliation: I attest that I have personally reviewed the patient' s current medication list. Blood pressure screening : Patient was found to have normal blood pressure on screening and does not require follow-up. R SHOULDER MIN 2 VIEWS ROUTINE HISTORY: 42 years-old Male RIGHT, EVAL PAIN acute right shoulder pain COMPARISON: Acute abdominal series radiographs 08/22/2017 TECHNIQUE: 3 views of the right shoulder FINDINGS: Mild degenerative changes of the glenohumeral joint with osteophytic spurring and subchondral sclerosis seen along the inferior portion of the joint space. There are only minimal AC joint degenerative changes. No acute fracture, dislocation or opaque foreign body identified. Imaged lung nye appear clear. IMPRESSION: Mild degenerative changes of the glenohumeral joint without acute fracture or dislocation. Problem List Medical Problems: (1) Abdominal pain Status: Resolved (2) Acute appendicitis Status: Resolved (3) Asthma Status: Chronic (4) Carpal tunnel syndrome Status: Resolved (5) Constipation Status: Resolved (6) Constipation Status: Resolved (7) Depression Status: Chronic (8) Hyperlipidemia Status: Chronic (9) Nausea Status: Resolved (10) Right lower quadrant abdominal pain Status: Resolved (11) RLQ abdominal pain Status: Resolved Surgical Problems: (1) History of appendectomy Status: Chronic (2) History of carpal tunnel release Status: Resolved Current/Historical Medications Scheduled Atorvastatin (Lipitor), 10 MG PO DAILY Lisinopril (Zestril), 10 MG PO DAILY Paroxetine (Paxil), 40 MG PO DAILY Scheduled PRN Cyclobenzaprine Hcl (Flexeril), 10 MG PO TID PRN for Muscle Spasms Allergies Coded Allergies: Tramadol (Verified Allergy, Unknown, ,, 11/21/17) interacts with paxil and doesn't make the paxil work for him Vital Signs Date Time Temp Pulse Resp B/P (MAP) Pulse Ox O2 Delivery O2 Flow Rate FiO2 03/12/18 20:23 62 97 03/12/18 18:32 36.6 76 18 128/85 98 Room Air Medications Administered Medications (Trade) Dose Ordered Sig/Dg Route Start Time Stop Time Status Last Admin Dose Admin Ibuprofen (Motrin Tab) 800 mg NOW STAT PO 03/12/18 19:13 03/12/18 19:14 DC 03/12/18 19:32 800 MG Cyclobenzaprine HCl (Flexeril Tab) 10 mg NOW STAT PO 03/12/18 19:13 03/12/18 19:14 DC 03/12/18 19:33 10 MG Departure Information Impression Primary Impression: Right shoulder pain Prescriptions Cyclobenzaprine Hcl (FLEXERIL) 10 Mg Tab 10 MG PO TID Y for Muscle Spasms, #30 TAB Prov: Joana Ratliff PA 03/12/18 Referrals Anabelle Masters PA-C (PCP) Patient Instructions [facility] Additional Instructions DO NOT drive, drink alcohol, operate machinery, or perform dangerous activities today. You were given medications in the ER that can affect your ability to safely function or operate a vehicle. Cyclobenzaprine (Flexeril) 10 mg: Take 1 pills 3 times daily as needed for muscle spasms.. Avoid alcohol, operating machinery or dangerous equipment, working on ladders or roofs, DRIVING, or situations where being under the influence may be dangerous. Ibuprofen(Motrin, Advil) may be used for fever or pain. Use 600mg every six hours as needed. Take with food. Avoid using more than 2400mg in a 24 hour period. Do not use 2400mg per day for more than three consecutive days without physician direction. Prolonged inappropriate use can lead to stomach upset or ulcers. This medication can be taken if you need to drive, work, or perform activities which may be dangerous when taking narcotic pain medication. (AND/OR) Acetaminophen(Tylenol) may be used for fever or pain. Use 1000mg every six hours as needed. Avoid using more than 3000mg in a 24 hour period. This medication can be taken if you need to drive, work, or perform activities which may be dangerous when taking narcotic pain medication. Warm compresses for 20 minutes at a time four times daily for 2-3 days. Rest and elevate your injury. Gentle stretching and range of motion exercises to help reduce spasm. Continue current medications. Follow up with your family physician if symptoms are not improving in 5-7 days. Problem Qualifiers Primary Impression: Right shoulder pain Chronicity: acute Qualified Codes: M25.511 - Pain in right shoulder
[2018-03-12 20:23] VITALS: PULSE 62; O2SAT 97
== END 2018-03-12 20:20 | disposition home or self-care (01) ==
LOC: C.EDB 18:29 → C.EDD 20:20
DX: M25.511 Pain in right shoulder (principal); Z72.0 Tobacco use; Z79.899 Other long term (current) drug therapy; Z88.6 Allergy status to analgesic agent